=== PATIENT | male | born 1950 | race Caucasian/White ===

== ENCOUNTER 2018-02-12 12:14 | Inpatient (IN) | payer BC, MEDICARE ==
--- NOTE | 2018-02-12 12:28 | ED Physician Documentation ---
PD HPI LOWER EXT INJURY - Stated complaint Stated Complaint: GLF - Chief complaint Chief Complaint: Ext Problem - History obtained from History obtained from: Patient, Family - History of Present Illness PD HPI LOW EXT INJURY LOCATION: Right, Hip - Additional information Additional information: This is a 67-year-old gentleman who is visiting from [facility], he has a history of syncope due to anaphylaxis, but I guess during the workup he had a defibrillator placed which is now , and never shocked him and he does not know of any objective evidence of cardiac disease. This was back in 1997. He is a long-standing smoker and has always been thin without recent weight loss. He was at his granddaughter's confirmation, he stepped up to have a smoke and his hip gave out on him with moderate pain with motion, but little pain at rest. He fell down on his right side and also sustained a skin tear on the right elbow. He is unable to walk and bear weight due to hip pain. He declines pain medication on initial evaluation. Review of Systems Ten Systems: 10 systems reviewed and negative Constitutional: reports: Weight Loss (he is thin- but always has been so). denies: Fever, Chills, Fatigue Eyes: denies: Loss of vision, Decreased vision Nose: denies: Rhinorrhea / runny nose, Congestion Throat: denies: Sore throat Cardiac: denies: Chest pain / pressure, Palpitations Respiratory: denies: Dyspnea, Cough PD PAST MEDICAL HISTORY - Past Medical History Past Medical History: Yes Cardiovascular: Other (AICD in place- but .) - Past Surgical History Past Surgical History: No - Present Medications Home Medications: Ambulatory Orders Medication Instructions Recorded Confirmed No Known Home Medications [No 02/12/18 02/12/18 Known Home Medications] - Allergies Allergies/Adverse Reactions: Allergies Allergy/AdvReac Type Severity Reaction Status Date / Time No Known Drug Allergies Allergy Verified 02/12/18 12:24 - Living Situation Living Situation: reports: With spouse/s.o. - Social History Does the pt smoke?: Yes Does the pt drink ETOH?: No Does the pt have substance abuse?: No - Family History Family history: reports: Non contributory PD ED PE NORMAL - Vitals Vital signs reviewed: Yes - General General: Alert and oriented X 3, No acute distress, Other (he is very thin) - HEENT HEENT: PERRL, EOMI - Neck Neck: Supple, no meningeal sign, No bony TTP - Cardiac Cardiac: RRR, No murmur - Respiratory Respiratory: No respiratory distress, Clear bilaterally - Abdomen Abdomen: Normal bowel sounds, Soft, Non tender - Back Back: No CVA TTP, No spinal TTP - Derm Derm: Normal color, Warm and dry, Other (There is a skin tear to the lateral right elbow, NTTP) - Extremities Extremities: Other (Right leg is shortened and externally rotated, he points to the groin as the site of pain when I rotate him. He is in little pain at rest and he has good pedal pulses.) - Neuro Neuro: Alert and oriented X 3, Normal speech - Psych Psych: Normal mood, Normal affect Results - Vitals Vitals: Vital Signs - 24 hr 02/12/18 02/12/18 12:20 14:02 Temperature 36.8 C 36.3 C L Heart Rate 71 74 Respiratory 16 20 Rate Blood Pressure 135/66 H 111/60 O2 Saturation 97 98 Oxygen O2 Source Room air - EKG (time done) 1236 Rate: Rate (enter#) (70) Rhythm: NSR, LAE [place]: Normal Intervals: Normal MI QRS: Normal Ischemia: Normal ST segments Computer interpretation: Agree with computer - Labs Labs: Laboratory Tests 02/12/18 02/12/18 02/12/18 12:26 12:26 12:26 WBC 16.9 H RBC 4.66 L Hgb 12.6 L Hct 39.5 L MCV 84.9 MCH 27.1 MCHC 32.0 RDW 16.0 H Plt Count 257 MPV 9.5 Neut # 13.9 H Lymph # 1.6 Hayes # 1.0 Eos # 0.2 Baso # 0.1 Absolute Nucleated RBC 0.00 Nucleated RBC % 0.0 Manual Slide Review Indicated Platelet Morphology RARE GIANT PLATELETS PT 12.3 INR 1.1 Sodium 138 Potassium 3.6 Chloride 101 Carbon Dioxide 25 Anion Gap 12.0 BUN 14 Creatinine 0.6 Estimated GFR (MDRD) 134 Glucose 122 H Calcium 8.8 Total Bilirubin 0.7 AST 27 ALT 20 Alkaline Phosphatase 83 Troponin I Total Protein 7.2 Albumin 3.8 Globulin 3.4 Albumin/Globulin Ratio 1.1 Lipase 21 L Blood Type Antibody Screen 02/12/18 02/12/18 12:26 13:08 WBC RBC Hgb Hct MCV MCH MCHC RDW Plt Count MPV Neut # Lymph # Hayes # Eos # Baso # Absolute Nucleated RBC Nucleated RBC % Manual Slide Review Platelet Morphology PT INR Sodium Potassium Chloride Carbon Dioxide Anion Gap BUN Creatinine Estimated GFR (MDRD) Glucose Calcium Total Bilirubin AST ALT Alkaline Phosphatase Troponin I < 0.04 Total Protein Albumin Globulin Albumin/Globulin Ratio Lipase Blood Type O POSITIVE Antibody Screen NEGATIVE - Rads (name of study) 1v chest Radiology: EMP read contemporaneously (COPD with right suprahilar and upper lung opacities which are nonspecific.) 2v R hip Radiology: EMP read contemporaneously (There is an angulated intertrochanteric right proximal femur fracture with heterogenous sclerosis in the right proximal femur which may indicate an underlying lesion) PD MEDICAL DECISION MAKING - ED course ED course: 67-year-old gentleman presents with evidence of a right hip fracture after a fall. History is somewhat concerning actually potentially for pathologic fracture because he says his hip gave out on him and then he fell. X-rays were obtained and Dr. De La Garza the orthopedic [employer] consultant was called and came in and saw the patient and plans to take him to the OR today for definitive treatment. There is some concern still on x-ray for pathologic fracture and his chest x- ray was nonspecific but not really clear either, after discussion with the electric freight car operator who will be caring for him inpatient, Dr. Tomlinson we ordered a chest CT to further evaluate his abnormal chest x-ray. Departure - Departure Disposition: [facility] DC/Xfer Clinical Impression: Abnormal chest xray Fracture, intertrochanteric, right femur Qualifiers: Encounter type: initial encounter Fracture type: closed Fracture alignment: displaced Qualified Code(s): S72.141A - Displaced intertrochanteric fracture of right femur, initial encounter for closed fracture Condition: Stable
[2018-02-12 12:38] LABS: INR 1.1 (0.8-1.2); PT - PROTHROMBIN TIME 12.3 secs (9.9-12.6)
[2018-02-12 12:40] LABS: BASOPHILS # (AUTO) 0.1 10^3/uL (0.0-0.1); BASOPHILS % (AUTO) 0.5 %; EOSINOPHILS # (AUTO) 0.2 10^3/uL (0.0-0.7); EOSINOPHILS % (AUTO) 1.4 %; HGB - HEMOGLOBIN 12.6 g/dL (14.0-18.0); LYMPHOCYTES # (AUTO) 1.6 10^3/uL (1.5-3.5); LYMPHOCYTES % (AUTO) 9.8 %; MEAN CORPUSCULAR HEMOGLOBIN 27.1 pg (27.0-31.0); MEAN CORPUSCULAR VOLUME 84.9 fL (80.0-94.0); MEAN PLATELET VOLUME 9.5 fL (7.4-11.4); NEUTROPHILS # (AUTO) 13.9 10^3/uL (1.5-6.6); NEUTROPHILS % (AUTO) 82.3 %; PLT - PLATELET COUNT 257 10^3/uL (130-450); RED BLOOD COUNT 4.66 10^6/uL (4.70-6.10); WHITE BLOOD COUNT 16.9 x10^3/uL (4.8-10.8)
[2018-02-12 12:46] LABS: ALBUMIN 3.8 g/dL (3.2-5.5); ALBUMIN/GLOBULIN RATIO 1.1 (1.0-2.2); BILIRUBIN,TOTAL 0.7 mg/dL (0.2-1.0); CALCIUM 8.8 mg/dL (8.5-10.3); CREATININE 0.6 mg/dL (0.6-1.2); TOTAL PROTEIN 7.2 g/dL (6.7-8.2)
[2018-02-12 12:53] LABS: PLATELET MORPHOLOGY RARE GIANT PLATELETS (NORMAL)
[2018-02-12] MEDS ORDERED: MORPHINE 2 MG/ML SYRINGE IVP PRN (14:07)
[2018-02-12] MEDS ORDERED: oxyCODONE 5 MG TABLET PO PRN ×2 (14:07)
[2018-02-12] MEDS ORDERED: SODIUM CHLORIDE FLUSH 0.9% 10 ML SYRINGE IVP PRN (14:07)
[2018-02-12] MEDS ORDERED: ONDANSETRON 4 MG/2 ML VIAL IVP PRN (14:07)
[2018-02-12] MEDS ORDERED: PROCHLORPERAZINE 10 MG/2 ML VIAL IVP PRN (14:07)
--- NOTE | 2018-02-12 14:09 | XRAY Preliminary Report ---
Exam: XR HIP W/PELVIS 2-3V RT IMPRESSION: Angulated intertrochanteric right proximal femur fracture. Heterogeneous sclerosis in the right proximal femur may indicate underlying lesion. [facility] SITE ID: [id number]
--- NOTE | 2018-02-12 14:10 | XRAY Report ---
EXAM: RIGHT HIP AND PELVIS RADIOGRAPHY EXAM DATE: 02/12/2018 12:34 PM. HISTORY: Hip inj- poss path frx given hx. COMPARISONS: None. TECHNIQUE: 1 view of the pelvis and 1 view of the hip. FINDINGS: There is an intertrochanteric right proximal femur fracture with mild displacement and moderate varus angulation. Heterogeneous sclerosis within the right proximal femur just inferior to the fracture ma rgins. No dislocation. No additional fracture demonstrated. IMPRESSION: Angulated intertrochanteric right proximal femur fracture. Heterogeneous sclerosis in the right proximal femur may indicate underlying lesion. [facility] Referring Provider Line: [phone] SITE ID: [id number]
--- NOTE | 2018-02-12 14:12 | XRAY Report ---
EXAM: CHEST RADIOGRAPHY EXAM DATE: 02/12/2018 12:34 PM. CLINICAL HISTORY: Preop, also possible path fracture of hip. COMPARISON: None. TECHNIQUE: 1 view. FINDINGS: Lungs/Pleura: Patient is rotated. COPD with hyperinflation. Patchy right suprahilar and upper lobe op acities. Lungs otherwise clear. No visualized pleural effusion or pneumothorax. Mediastinum: Right hilar prominence. Normal heart size. AICD lead in place. Other: None. IMPRESSION: COPD. Right suprahilar and upper lung opacities are nonspecific, could represent pneumoni a, atelectasis/scarring, underlying neoplasm not excluded. [facility] Referring Provider Line: [phone] SITE ID: [id number]
--- NOTE | 2018-02-12 14:16 | PROVIDER PROGRESS NOTE ---
Subjective - Prog Note Date Prog Note Date: 02/12/18 Prog Note Time: 14:14 - Subjective Pt reports feeling: Worse (Patient had a fall (?loss of balance) this AM, landing onto right side and sustained a right IT hip fx. No LOC or other injury noted, but is unsure how or why he fell. Last ate last PM; only coffee with some sugar at about 0800. No distal weakness/numbness or N/V. No known hx for Ca.) Objective - Vital Signs/Intake & Output Vital Signs: Vital Signs x48h Temp Pulse Resp BP Pulse Ox 02/12/18 14:02 36.3 C L 74 20 111/60 98 02/12/18 12:20 36.8 C 71 16 135/66 H 97 - Lab Results Fish Bones: 02/12/18 12:26 02/12/18 12:26 Other Labs: Lab Results x24hrs 02/12/18 02/12/18 02/12/18 Range/Units 13:08 12:26 12:26 WBC (4.8-10.8) x10^3/uL RBC (4.70-6.10) 10^6/uL Hgb (14.0-18.0) g/dL Hct (42.0-52.0) % MCV (80.0-94.0) fL MCH (27.0-31.0) pg MCHC (32.0-36.0) g/dL RDW (12.0-15.0) % Plt Count (130-450) 10^3/uL MPV (7.4-11.4) fL Neut # (1.5-6.6) 10^3/uL Lymph # (1.5-3.5) 10^3/uL [place] # (0.0-1.0) 10^3/uL Eos # (0.0-0.7) 10^3/uL Baso # (0.0-0.1) 10^3/uL Absolute Nucleated RBC x10^3/uL Nucleated RBC % /100WBC Manual Slide Review Platelet Morphology (NORMAL) PT 12.3 (9.9-12.6) secs INR 1.1 (0.8-1.2) Sodium 138 (135-145) mmol/L Potassium 3.6 (3.5-5.0) mmol/L Chloride 101 (101-111) mmol/L Carbon Dioxide 25 (21-32) mmol/L Anion Gap 12.0 (6-13) BUN 14 (6-20) mg/dL Creatinine 0.6 (0.6-1.2) mg/dL Estimated GFR (MDRD) 134 (>89) Glucose 122 H (70-100) mg/dL Calcium 8.8 (8.5-10.3) mg/dL Total Bilirubin 0.7 (0.2-1.0) mg/dL AST 27 (10-42) IU/L ALT 20 (10-60) IU/L Alkaline Phosphatase 83 (42-121) IU/L Total Protein 7.2 (6.7-8.2) g/dL Albumin 3.8 (3.2-5.5) g/dL Globulin 3.4 (2.1-4.2) g/dL Albumin/Globulin Ratio 1.1 (1.0-2.2) Lipase 21 L (22-51) U/L Blood Type O POSITIVE Antibody Screen NEGATIVE 02/12/18 Range/Units 12:26 WBC 16.9 H (4.8-10.8) x10^3/uL RBC 4.66 L (4.70-6.10) 10^6/uL Hgb 12.6 L (14.0-18.0) g/dL Hct 39.5 L (42.0-52.0) % MCV 84.9 (80.0-94.0) fL MCH 27.1 (27.0-31.0) pg MCHC 32.0 (32.0-36.0) g/dL RDW 16.0 H (12.0-15.0) % Plt Count 257 (130-450) 10^3/uL MPV 9.5 (7.4-11.4) fL Neut # 13.9 H (1.5-6.6) 10^3/uL Lymph # 1.6 (1.5-3.5) 10^3/uL [place] # 1.0 (0.0-1.0) 10^3/uL Eos # 0.2 (0.0-0.7) 10^3/uL Baso # 0.1 (0.0-0.1) 10^3/uL Absolute Nucleated RBC 0.00 x10^3/uL Nucleated RBC % 0.0 /100WBC Manual Slide Review Indicated Platelet Morphology RARE GIANT PLATELETS (NORMAL) PT (9.9-12.6) secs INR (0.8-1.2) Sodium (135-145) mmol/L Potassium (3.5-5.0) mmol/L Chloride (101-111) mmol/L Carbon Dioxide (21-32) mmol/L Anion Gap (6-13) BUN (6-20) mg/dL Creatinine (0.6-1.2) mg/dL Estimated GFR (MDRD) (>89) Glucose (70-100) mg/dL Calcium (8.5-10.3) mg/dL Total Bilirubin (0.2-1.0) mg/dL AST (10-42) IU/L ALT (10-60) IU/L Alkaline Phosphatase (42-121) IU/L Total Protein (6.7-8.2) g/dL Albumin (3.2-5.5) g/dL Globulin (2.1-4.2) g/dL Albumin/Globulin Ratio (1.0-2.2) Lipase (22-51) U/L Blood Type Antibody Screen - Diagnostic Imaging Diagnostic Imaging Comments: XR show a right IT hip fracture. ?bone quality with sclerotic pattern present, per radiologist's read - Other Results/Comments Other Results/Comments: EXAM: Right leg shortened and ext rotated. Painful hip motion. Lateral hip tenderness. Moves toes well. Sensation intact. Good cap filling Assessment/Plan - Problem List (1) Fracture, intertrochanteric, right femur Impression: Closed fracture. ?etiology. Hx suggests possible pathologic fx PLAN: Medical evaluation prior to surgical fixation of fracture. Will plan a short interTan nailing of fracture and will send some bone reaming to pathology for assessment. Risks and benefit of surgery explained, including anesthesia risk, malunion, nonunion, infection, blood loss, blood clots, etc. Questions answered. Leg marked Qualifiers: Encounter type: initial encounter Fracture type: closed Fracture alignment: displaced Qualified Code(s): S72.141A - Displaced intertrochanteric fracture of right femur, initial encounter for closed fracture
[2018-02-12] MEDS ORDERED: IPRATROPIUM/ALBUTEROL 3 ML NEB INH PRN (14:21)
[2018-02-12] MEDS ORDERED: IOPAMIDOL-300 100 ML VIAL IVP ONE (14:48)
[2018-02-12] MEDS ORDERED: IOPAMIDOL-300 100 ML VIAL ONE (14:51)
[2018-02-12] MEDS: ACETAMINOPHEN 325 MG TABLET PO PRN (15:26)
--- NOTE | 2018-02-12 16:03 | CONSULTATION NOTE ---
DATE OF SERVICE: 02/12/2018 Physician: Prasanth De La Garza MD ORTHOPEDIC CONSULT NOTE REFERRING PHYSICIAN: Dayne Burch MD, of the emergency room department. CHIEF COMPLAINT: "My right hip hurts." HISTORY OF PRESENT ILLNESS: Patient is a 67-year-old male visitor from [place], [place], who apparently had a fall on the morning of his admission. Patient denies tripping, stumbling, and is unsure why he had his fall. Denies any actual loss of consciousness, however. No other associated injury. No distal weakness or numbness. No nausea or vomiting noted. After his fall, he noted immediate pain and deformity in the right hip region. He was unable to move or able to stand and weightbear on the right lower extremity. He was taken by ambulance to the emergency room here at [facility], where x-rays show an intertrochanteric right hip fracture. Radiology report of the x-ray finding suggests there may be some sclerotic pattern noted in the area of this fracture as well. Patient has no known history of cancer. PHYSICAL EXAMINATION: Patient's right leg was examined. His right leg is shortened and externally rotated. He had lateral hip tenderness on palpation. Had painful hip range of motion noted. He moves his toes well without any problems. Sensation appeared to be intact distally. Good capillary filling noted. DIAGNOSTIC STUDIES: X-rays that were taken show an intertrochanteric right hip fracture present. ASSESSMENT 1. Closed right intertrochanteric hip fracture. 2. Etiology of the fracture is unclear, since patient denies a loss of consciousness; has had a history of balance issues. PLAN: We will have the medical service evaluate the patient to see if he is stable enough to proceed with surgical fixation of the fracture. Because of the radiologist's interpretation of his x-rays, and the suspicious history for the patient's fracture, we will send some of the intramedullary reaming that will be produced from the stabilization of this hip fracture to Pathology for pathologic inspection. Once he has been medically cleared, however, we will proceed for surgical fixation fracture, which would be a short Intertan nailing for this fracture. Risks and benefits of surgery were explained to the patient and his family including, but not limited to anesthesia risks, malunion, nonunion, infection, blood loss, blood clots, hardware failure, etc. Questions were answered. Family wishes to proceed with surgery as planned once he has been medically cleared. Consent has been signed. The leg was marked. TD: 02/12/2018 15:11
--- NOTE | 2018-02-12 16:10 | CT Report ---
EXAM: CT CHEST EXAM DATE: 02/12/2018 03:39 PM. CLINICAL HISTORY: IV only, abn cxr, tobacco. Trauma, fall, hip fracture. COMPARISONS: No CT comparison. Single view chest radiograph 02/12/2018. TECHNIQUE: Routine helical CT imaging was performed through the chest. IV contrast: 80 cc Isovue-300. Reconstructions: Coronal and sagittal. In accordance with CT protocol optimization, one or more of the following dose reduction techniques w ere utilized for this exam: automated exposure control, adjustment of mA and/or KV based on patient s ize, or use of iterative reconstructive technique. FINDINGS: Lungs/Pleura: Broad area of consolidation within the posterior right upper lobe with a dominant porti on having approximate maximum dimensions of 4.2 x 8.3 x 3.6 cm. There are multiple internal air bronc hograms. This also a dominant cystic/cavitary internal component measuring 1.8 x 4.3 x 2.1 cm. There is calcification, versus surgical material, along the posterior margin of the cavity. Extending broad ly inferiorly from there is pleural-based irregular pulmonary consolidation and also irregular massli ke densities with a dominant component demonstrating maximum axial dimension of approximately 4.3 cm and craniocaudal dimension. Approximately 4.1 cm (4/34 and coronal image 41). It also demonstrates so me small areas of air bronchograms and focal cavitation. These are suspicious for malignancy. There i s a mostly separate lobulated, masslike area within the central superior apex measuring 1.3 x 3.7 cm (4/12). Nodular and bandlike densities extending along the posterior right lower lobe pleura and ther e are numerous discrete separate soft tissue pulmonary nodules within the right lung, greatest in the posterior right lower lobe. There is a trace right pleural effusion. There is pulmonary emphysematou s disease. No pneumothorax. Numerous left pulmonary nodules. The largest is lobulated and mildly irregular within the lateral lef t upper lobe measuring 1.0 x 1.3 cm densities 4/27). Irregular nodular density within the lingular se gment measures 0.7 x 1.8 cm (4/48). There are numerous relatively clustered nodules within the anteri or left lower lobe measuring 0.9 cm and less. Numerous additional smaller pulmonary nodules. Mediastinum: Possible mildly prominent medial left AP window lymph node. Some mild right hilar densit y could represent mild adenopathy. No other guerline adenopathy. Relatively small heart size. No pericar dial effusion. Moderate to severe coronary artery calcifications. Transvenous directly extends to the ventricular apex. Bones: Evidence of osteopenia. 50-60% compression fracture of the T9 vertebral body with [id number] rate inferior T7 and superior T11 vertebral body height loss. These are of undocumented chronicity. D iscrete 1.0 cm lucency within the superior T12 vertebral body extensive endplate likely represents a Schmorl's node. No other definite acute osseous abnormality. Visualized Abdomen: No definite acute abnormality. Other: None. IMPRESSION: 1. Extensive confluent, soft tissue, masslike and multifocal densities within the posterior right upp er lung and also within the right lower lobe with areas of central cavitation. There are also numerou s bilateral pulmonary nodules. These findings are highly suspicious for malignancy and metastatic dis ease. A chronic, atypical infectious etiology is not excluded. Correlation with clinical history and any prior exams is recommended. 2. Possible borderline enlarged mediastinal lymph noted with possible mild right hilar lymphadenopath y. 3. Multiple thoracic vertebral body compression deformities, of indeterminate chronicity. [facility] Referring Provider Line: [phone] SITE ID: [id number]
[2018-02-12] MEDS: SODIUM CHLORIDE 0.9% 1,000 ML IV SCH (16:24)
--- NOTE | 2018-02-12 17:22 | HISTORY & PHYSICAL EXAMINATION ---
Chief Complaint - Chief Complaint Chief Complaint: Right hip pain History of Present Illness - Admitted From Admitted From:: Emergency department - History Obtained From Records Reviewed: Yes History obtained from: Patient Exam Limitations: Patient unable to move his right leg secondary to hip fracture - History of Present Illness HPI Comment/Other: Patient is a 67-year-old gentleman with a past medical history significant for 3 episodes of respiratory failure which were attributed to anaphylactic shock from fire ant bites for which patient did have an AICD placed but this is never fired and he has never replaced the battery therefore it is nonfunctioning otherwise the patient has been relatively healthy all his life although he does not regularly follow up with the doctor. The patient presented to the emergency department today after he fell to the floor after his granddaughters communion ceremony at the [employer]. He states that he cannot remember exactly what happened but states that he remembers stumbling forward and then falling on his right side. He states that he did not lose consciousness nor did he hit his head. He states when he landed on the floor he was in excruciating pain in his right hip. He states that he tried to stand up and move his right leg but he was unable to due to the severity of the pain. The patient does not remember tripping over anything and only remembers falling to the floor. No one around the patient saw him fall. But people were at his side within seconds and the patient never had any loss of consciousness. Prior to the episode the patient states he was in his normal state of health and was not experiencing any dizziness, palpitations, chest pain, shortness of air, fevers, chills, or any other symptoms. On further questioning the patient states that he has noticed that he has had increasing shortness of breath over the last 6 months. He states that he is noticed that he has been having episodes of wheezing. He also states that he has been having a cough for the last several years that has become worse over the last 6 months to 1 year. He states the cough is particularly bad in the morning and seems to get better throughout the day. He also reports that he has lost about 25 pounds over the last 1-2 years. He states that he no longer has an appetite. He states that he is always been thin but usually he weighs around 150-160 pounds and is now down to 125 pounds. The patient also states that he has noticed that recently he has had difficulty with his balance but denies having had any other falls. At this time the patient is in severe pain anytime he moves his leg but he states that as long as he stays still the pain is minimal. The patient denies any headaches, blurred vision, runny nose, sore throat, nasal congestion, difficulty swallowing, chest pain, orthopnea, PND, increased lower extremity swelling, abdominal pain, nausea, vomiting, diarrhea, constipation, urinary urgency, urinary frequency, dysuria, back pain, neck stiffness, skin rash, hair loss or any focal neurologic deficits. On presentation to the emergency department the patient was afebrile and vital signs were within normal limits. The emergency room physician noted that the patient had an externally rotated and shortened right leg. The patient was also in a significant amount of pain. The patient underwent routine lab work initially which did reveal a leukocytosis of 16.9 and a anemia with hemoglobin of 12.6. The remainder of the patient's lab work was within normal limits. Patient had a negative troponin and EKG showed no ischemic changes. Given the uncertainty of whether patient had a syncopal episode the patient also underwent an echocardiogram in the emergency department which showed a normal ejection fraction with no regional wall motion abnormalities and no evidence of any valvular abnormalities. The patient also underwent a x-ray of his right hip which revealed a angulated intertrochanteric right proximal femur fracture. With heterogeneous sclerosis in the right proximal femur concerning for underlying lesion. The patient also underwent a chest x-ray in the emergency department which revealed COPD. Right suprahilar and upper lung opacities which were nonspecific and could represent underlying neoplasm. Given the concern with the patient having had recent weight loss, cough increasing shortness of breath, concerning lesion on the hip x-ray and this x-ray finding the patient also underwent a CT of his chest which revealed extensive confluent soft tissue masslike and multifocal densities within posterior right upper lung and also within the right lower lobe with areas of central cavitation. Also with numerous bilateral pulmonary nodules. Very suspicious for malignancy and metastatic disease. The patient was admitted to the medical carias for repair of his right hip fracture and will need counseling at further outpatient workup for possible cancer. History - Past Medical History Cardiovascular: reports: Other Respiratory: reports: COPD, Emphysema Neuro: reports: None Endocrine/Autoimmune: reports: None GI: reports: None : reports: None HEENT: reports: Macular degeneration Psych: reports: None Musculoskeletal: reports: None Derm: reports: None MRSA Hx?: No Other Past Medical History: 3 episodes of respiratory failure which were attributed to anaphylactic shock from fire ant bites for which patient did have an AICD placed but this is never fired and he has never replaced the battery therefore it is nonfunctioning - Past Surgical History General: reports: Appendectomy HEENT: reports: Tonsil/Adenoidectomy - Family & Social History Family History: Mother: Alzheimer's Disease, CAD, Father: CAD, Cancer (Colon Ca , Sister had bone cancer at 17 years old and ), COPD/Emphysema, Sister: CAD , Cancer Family History Comment/Other: Sister and mom both had atrial fibrillation Living arrangement: At home Living Situation: With spouse/s.o. Social History Notes: The patient is born and raised in [place], [place]. He moved to [place] in 1978 and he and his have lived there since. The patient was in the [employer] industry until he retired. He has 3 daughters 1 of whom lives on [facility]. He is currently visiting his daughter as it is his granddaughter's first communion. He is and his is retiring in April. The patient is a smoker and in the past smoked up to 1 pack per day but recently has cut down to 4-6 cigarettes a day. He states he has been smoking since his teen years. He also drinks 3 beers a day. He denies any illicit drug use. - POLST Patient has POLST: No POLST Status: Full Code Meds/Allgy - Home Medications Home Medications: Ambulatory Orders Medication Instructions Recorded Confirmed No Known Home Medications [No 02/12/18 02/12/18 Known Home Medications] - Allergies Allergies/Adverse Reactions: Allergies Allergy/AdvReac Type Severity Reaction Status Date / Time No Known Drug Allergies Allergy Verified 02/12/18 12:24 Review of Systems - Other Findings Other Findings: A comprehensive review of systems was performed the pertinent positives and negatives are stated above in the HPI and the remainder of the review of systems is negative. Exam - Vital Signs Reviewed Vital Signs: Yes Vital Signs: Vital Signs x48h Temp Pulse Resp BP Pulse Ox 02/12/18 15:24 36.4 C L 78 22 107/73 100 - Physical Exam General Appearance: positive: Alert, Moderate distress (pain in right hip), Other (cachectic) Eyes Bilateral: positive: Normal inspection, PERRL, EOMI, No lid inflammation, Conjunctivae nml, No scleral icterus ENT: positive: ENT inspection nml, Pharynx nml, Dry mucous membranes. negative : Purulent nasal drainage, Pharyngeal erythema, Oral lesions Neck: positive: Nml inspection, Thyroid nml, No JVD, Trachea midline. negative : Lymphadenopathy (R), Lymphadenopathy (L), Stiff neck Respiratory: positive: Chest non-tender, Wheezes (bilateral in lower lobes worse on the right), Rhonchi (right lung) Cardiovascular: positive: Regular rate & rhythm, No murmur, No gallop Peripheral Pulses: positive: 2+ Abdomen: positive: Non-tender, No organomegaly, Nml bowel sounds, No distention. negative: Guarding, Rebound, Hepatomegaly, Splenomegaly Back: positive: Nml inspection. negative: CVA tenderness (R), CVA tenderness (L ) Skin: positive: No rash, Warm. negative: Diaphoresis, Pallor, Skin rash Extremities: positive: Other (Right leg is externally rotated and shortened. There is swelling around the right hip. Patient has very limited range of motion secondary to pain around the right leg) Neurologic/Psychiatric: positive: Oriented x3, CN's nml (2-12), Motor nml, Sensation nml, Mood/affect nml Conclusion/Plan - Problem List (1) Fracture, intertrochanteric, right femur Conclusion/Plan: Patient presented with a fall and right intertrochanteric femur fracture. There was concern on the x-ray for heterogeneous sclerosis in the right proximal femur likely indicating an underlying lesion. The presentation was concerning for possible pathological fracture. Findings of chest x-ray and chest CT are suggestive of metastatic lung cancer which could explain the possible pathological fracture. Patient will need surgical intervention to repair the fracture. According to the revised cardiac risk index which does not take into account malignancy the patient's risk of major cardiac event during the surgery is 0.4%. Plan: N.p.o. after midnight Orthopedic consult for surgical repair of the right hip fracture in the morning Pain control with IV morphine, Tylenol and oxycodone Physical therapy post surgery Start anticoagulation post surgery Patient will likely need rehab placement. Qualifiers: Encounter type: initial encounter Fracture type: closed Fracture alignment: displaced Qualified Code(s): S72.141A - Displaced intertrochanteric fracture of right femur, initial encounter for closed fracture (2) Lesion of right lung Conclusion/Plan: Patient was found to have a right lung lesion on chest x-ray and CT chest was performed given his risk factors of long-term smoking, weight loss, increasing shortness of breath and possible pathological fracture. The CT showed extensive confluent, soft tissue, masslike and multifocal densities within the posterior right upper lung and also within the right lower lobe with areas of central cavitation. There was also numerous bilateral pulmonary nodules. This was all highly suspicious for malignancy and metastatic disease. Patient and his were told of these findings and counseled. The patient understands that diagnosis needs to be confirmed with a biopsy but at this point it looks very much like he has metastatic cancer. Patient will need further outpatient workup and will need to be referred to oncology. Patient will need to decide whether he wants [place] do [place] at his home. (3) COPD (chronic obstructive pulmonary disease) Conclusion/Plan: Patient appears to have emphysema with COPD from long-term tobacco use. The patient had no previous diagnosis of COPD. Patient does not appear to be in a COPD exacerbation although he does have some diffuse wheezing. Patient will be placed on duo nebs as needed while he is hospitalized. Qualifiers: COPD type: emphysema (4) Tobacco abuse Conclusion/Plan: Patient has history of tobacco abuse up to 1 pack a day for greater than 50 years. The patient was counseled on need to quit smoking. Patient will be offered a nicotine patch if he needs it - Lab Results Lab results reviewed: Yes Fish Bones: 02/12/18 12:26 02/12/18 12:26 Other Lab Results: Laboratory Results WBC 16.9 x10^3/uL (4.8-10.8) H 02/12/18 12:26 RBC 4.66 10^6/uL (4.70-6.10) L 02/12/18 12:26 Hgb 12.6 g/dL (14.0-18.0) L 02/12/18 12:26 Hct 39.5 % (42.0-52.0) L 02/12/18 12:26 MCV 84.9 fL (80.0-94.0) 02/12/18 12:26 MCH 27.1 pg (27.0-31.0) 02/12/18 12:26 MCHC 32.0 g/dL (32.0-36.0) 02/12/18 12:26 RDW 16.0 % (12.0-15.0) H 02/12/18 12:26 Plt Count 257 10^3/uL (130-450) 02/12/18 12:26 MPV 9.5 fL (7.4-11.4) 02/12/18 12:26 Neut # 13.9 10^3/uL (1.5-6.6) H 02/12/18 12:26 Lymph # 1.6 10^3/uL (1.5-3.5) 02/12/18 12:26 [place] # 1.0 10^3/uL (0.0-1.0) 02/12/18 12:26 Eos # 0.2 10^3/uL (0.0-0.7) 02/12/18 12:26 Baso # 0.1 10^3/uL (0.0-0.1) 02/12/18 12:26 Absolute Nucleated RBC 0.00 x10^3/uL 02/12/18 12:26 Nucleated RBC % 0.0 /100WBC 02/12/18 12:26 Manual Slide Review Indicated 02/12/18 12:26 Platelet Morphology RARE GIANT PLATELETS (NORMAL) 02/12/18 12:26 PT 12.3 secs (9.9-12.6) 02/12/18 12:26 INR 1.1 (0.8-1.2) 02/12/18 12:26 Sodium 138 mmol/L (135-145) 02/12/18 12:26 Potassium 3.6 mmol/L (3.5-5.0) 02/12/18 12:26 Chloride 101 mmol/L (101-111) 02/12/18 12:26 Carbon Dioxide 25 mmol/L (21-32) 02/12/18 12:26 Anion Gap 12.0 (6-13) 02/12/18 12:26 BUN 14 mg/dL (6-20) 02/12/18 12:26 Creatinine 0.6 mg/dL (0.6-1.2) 02/12/18 12:26 Estimated GFR (MDRD) 134 (>89) 02/12/18 12:26 Glucose 122 mg/dL (70-100) H 02/12/18 12:26 Calcium 8.8 mg/dL (8.5-10.3) 02/12/18 12:26 Total Bilirubin 0.7 mg/dL (0.2-1.0) 02/12/18 12:26 AST 27 IU/L (10-42) 02/12/18 12:26 ALT 20 IU/L (10-60) 02/12/18 12:26 Alkaline Phosphatase 83 IU/L (42-121) 02/12/18 12:26 Troponin I < 0.04 ng/mL (<0.49) 02/12/18 12:26 Total Protein 7.2 g/dL (6.7-8.2) 02/12/18 12:26 Albumin 3.8 g/dL (3.2-5.5) 02/12/18 12:26 Globulin 3.4 g/dL (2.1-4.2) 02/12/18 12:26 Albumin/Globulin Ratio 1.1 (1.0-2.2) 02/12/18 12:26 Lipase 21 U/L (22-51) L 02/12/18 12:26 Blood Type O POSITIVE 02/12/18 13:08 Antibody Screen NEGATIVE 02/12/18 13:08 - Diagnostic Imaging Results Diagnostic Imaging Results: positive: Final report reviewed Diagnostic Imaging Results Comments: EXAM: [id number] XR/RHIP2V ([id number]) EXAM: RIGHT HIP AND PELVIS RADIOGRAPHY EXAM DATE: 02/12/2018 12:34 PM. HISTORY: Hip inj- poss path frx given hx. COMPARISONS: None. TECHNIQUE: 1 view of the pelvis and 1 view of the hip. FINDINGS: There is an intertrochanteric right proximal femur fracture with mild displacement and moderate varus angulation. Heterogeneous sclerosis within the right proximal femur just inferior to the fracture margins. No dislocation. No additional fracture demonstrated. IMPRESSION: Angulated intertrochanteric right proximal femur fracture. Heterogeneous sclerosis in the right proximal femur may indicate underlying lesion. EXAM: [id number] XR/[id number] ([id number]) EXAM: CHEST RADIOGRAPHY EXAM DATE: 02/12/2018 12:34 PM. CLINICAL HISTORY: Preop, also possible path fracture of hip. COMPARISON: None. TECHNIQUE: 1 view. FINDINGS: Lungs/Pleura: Patient is rotated. COPD with hyperinflation. Patchy right suprahilar and upper lobe opacities. Lungs otherwise clear. No visualized pleural effusion or pneumothorax. Mediastinum: Right hilar prominence. Normal heart size. AICD lead in place. Other: None. IMPRESSION: COPD. Right suprahilar and upper lung opacities are nonspecific, could represent pneumonia, atelectasis/scarring, underlying neoplasm not excluded. EXAM: [id number] CT/CHTW ([id number]) EXAM: CT CHEST EXAM DATE: 02/12/2018 03:39 PM. CLINICAL HISTORY: IV only, abn cxr, tobacco. Trauma, fall, hip fracture. COMPARISONS: No CT comparison. Single view chest radiograph 02/12/2018. TECHNIQUE: Routine helical CT imaging was performed through the chest. IV contrast: 80 cc Isovue- 300. Reconstructions: Coronal and sagittal. In accordance with CT protocol optimization, one or more of the following dose reduction techniques were utilized for this exam: automated exposure control, adjustment of mA and/or KV based on patient size, or use of iterative reconstructive technique. FINDINGS: Lungs/Pleura: Broad area of consolidation within the posterior right upper lobe with a dominant portion having approximate maximum dimensions of 4.2 x 8.3 x 3.6 cm. There are multiple internal air bronchograms. This also a dominant cystic/cavitary internal component measuring 1.8 x 4.3 x 2.1 cm. There is calcification, versus surgical material, along the posterior margin of the cavity. Extending broadly inferiorly from there is pleural-based irregular pulmonary consolidation and also irregular masslike densities with a dominant component demonstrating maximum axial dimension of approximately 4.3 cm and craniocaudal dimension. Approximately 4.1 cm (/34 and coronal image 41). It also demonstrates some small areas of air bronchograms and focal cavitation. These are suspicious for malignancy. There is a mostly separate lobulated, masslike area within the central superior apex measuring 1.3 x 3.7 cm (4/12). Nodular and bandlike densities extending along the posterior right lower lobe pleura and there are numerous discrete separate soft tissue pulmonary nodules within the right lung, greatest in the posterior right lower lobe. There is a trace right pleural effusion. There is pulmonary emphysematous disease. No pneumothorax. Numerous left pulmonary nodules. The largest is lobulated and mildly irregular within the lateral left upper lobe measuring 1.0 x 1.3 cm densities 4/27). Irregular nodular density within the lingular segment measures 0.7 x 1.8 cm (4/48). There are numerous relatively clustered nodules within the anterior left lower lobe measuring 0.9 cm and less. Numerous additional smaller pulmonary nodules. Mediastinum: Possible mildly prominent medial left AP window lymph node. Some mild right hilar density could represent mild adenopathy. No other guerline adenopathy. Relatively small heart size. No pericardial effusion. Moderate to severe coronary artery calcifications. Transvenous directly extends to the ventricular apex. Bones: Evidence of osteopenia. 50-60% compression fracture of the T9 vertebral body with mild-to- moderate inferior T7 and superior T11 vertebral body height loss. These are of undocumented chronicity. Discrete 1.0 cm lucency within the superior T12 vertebral body extensive endplate likely represents a Schmorl's node. No other definite acute osseous abnormality. Visualized Abdomen: No definite acute abnormality. Other: None. IMPRESSION: 1. Extensive confluent, soft tissue, masslike and multifocal densities within the posterior right upper lung and also within the right lower lobe with areas of central cavitation. There are also numerous bilateral pulmonary nodules. These findings are highly suspicious for malignancy and metastatic disease. A chronic, atypical infectious etiology is not excluded. Correlation with clinical history and any prior exams is recommended. 2. Possible borderline enlarged mediastinal lymph noted with possible mild right hilar lymphadenopathy. 3. Multiple thoracic vertebral body compression deformities, of indeterminate chronicity - EKG Results EKG Interpreted Independently: Yes EKG Findings: Normal sinus rhythm with no ST changes Core Measures - Anticipated LOS I expect patient to be DC'd or transferred within 96 hours.: Yes - DVT/VTE - Prophylaxis VTE/DVT Device ordered at admit?: Yes
[2018-02-12] MEDS: SODIUM CHLORIDE FLUSH 0.9% 10 ML SYRINGE IVP SCH ×2 (19:48→23:38)
[2018-02-13] MEDS ORDERED: ACETAMINOPHEN 1,000 MG/100 ML 100 ML IV PRN ×2 (01:06→09:40)
[2018-02-13] MEDS: SODIUM CHLORIDE 0.9% 1,000 ML IV SCH ×3 (01:28→21:22)
[2018-02-13 05:53] LABS: BASOPHILS # (AUTO) 0.1 10^3/uL (0.0-0.1); BASOPHILS % (AUTO) 0.7 %; EOSINOPHILS # (AUTO) 0.1 10^3/uL (0.0-0.7); EOSINOPHILS % (AUTO) 1.6 %; HGB - HEMOGLOBIN 10.2 g/dL (14.0-18.0); LYMPHOCYTES # (AUTO) 0.7 10^3/uL (1.5-3.5); LYMPHOCYTES % (AUTO) 8.3 %; MEAN CORPUSCULAR HEMOGLOBIN 26.7 pg (27.0-31.0); MEAN CORPUSCULAR VOLUME 83.5 fL (80.0-94.0); MONOCYTES # (AUTO) 0.8 10^3/uL (0.0-1.0); MONOCYTES % (AUTO) 9.3 %; NEUTROPHILS # (AUTO) 7.2 10^3/uL (1.5-6.6); NEUTROPHILS % (AUTO) 80.1 %; PLT - PLATELET COUNT 183 10^3/uL (130-450); RED BLOOD COUNT 3.81 10^6/uL (4.70-6.10); RED CELL DISTRIBUTION WIDTH 15.4 % (12.0-15.0)
[2018-02-13 06:02] LABS: BILIRUBIN,TOTAL 0.8 mg/dL (0.2-1.0); CALCIUM 8.3 mg/dL (8.5-10.3); CREATININE 0.5 mg/dL (0.6-1.2); MAGNESIUM 1.9 mg/dL (1.7-2.8); PHOSPHORUS 3.1 mg/dL (2.5-4.6); TOTAL PROTEIN 5.9 g/dL (6.7-8.2)
[2018-02-13 06:10] LABS: PT - PROTHROMBIN TIME 11.8 secs (9.9-12.6)
[2018-02-13] MEDS ORDERED: ceFAZolin 2 GM/50 ML 2 GM/50 ML BAG IV SCH (08:00)
[2018-02-13] MEDS ORDERED: BUPIVACAINE 0.25%-EPI 1:200000 PF 30 ML VIAL SUBQ ONE (09:25)
[2018-02-13] MEDS ORDERED: LACTATED RINGERS 1,000 ML IV ONE ×2 (09:27→09:54)
[2018-02-13] MEDS ORDERED: BUPIVACAINE 0.25%-EPI 1:200000 PF 30 ML VIAL ONE (09:28)
[2018-02-13] MEDS ORDERED: KETAMINE 500 MG/10 ML VIAL IVP ONE (09:30)
[2018-02-13] MEDS ORDERED: PROPOFOL 200 MG/20 ML VIAL IVP ONE (09:30)
[2018-02-13] MEDS ORDERED: ACETAMINOPHEN 325 MG TABLET PO PRN (09:40)
[2018-02-13] MEDS ORDERED: PROCHLORPERAZINE 10 MG/2 ML VIAL IVP PRN (09:40)
[2018-02-13] MEDS ORDERED: SENNA 8.6 MG TABLET PO PRN (09:40)
[2018-02-13] MEDS ORDERED: DOCUSATE SODIUM 100 MG CAPSULE PO PRN (09:40)
[2018-02-13] MEDS ORDERED: ONDANSETRON 4 MG/2 ML VIAL IVP PRN (09:40)
[2018-02-13] MEDS ORDERED: SODIUM CHLORIDE FLUSH 0.9% 10 ML SYRINGE IVP PRN (09:40)
--- NOTE | 2018-02-13 09:40 | OPERATIVE REPORT ---
Operative Report - General Admit Date: 02/12/18 Procedure Date: 02/13/18 Planned Procedure: Short interTan nailing of right hip fracture Pre-Op Diagnosis: Closed right IT hip fracture - possibly pathologic fracture Procedure Performed: Closed reduction and short interTan nailing of right IT hip fracture; Bone reaming biopsy Post Op Diagnosis: Same - Procedure Note Primary Surgeon: Priya De La Garza Secondary Surgeon: None Anesthesia Provider: Bernadette Shannon CRNA Anesthesia Technique: Spinal Pathology: Bone reaming sent to pathology IV Fluids (mL): 800 Estimated Blood Loss (mL): 100 Complications: None
[2018-02-13] MEDS ORDERED: SODIUM CHLORIDE 0.9% 1,000 ML IV SCH (10:00)
[2018-02-13] MEDS ORDERED: HYDROmorphone 0.5 MG/0.5 ML SYRINGE ONE (10:14)
[2018-02-13] MEDS: FAMOTIDINE 20 MG TABLET PO SCH (10:15)
[2018-02-13] MEDS: POLYETHYLENE GLYCOL 3350 17 GM PACKET PO SCH (10:15)
[2018-02-13] MEDS: SODIUM CHLORIDE FLUSH 0.9% 10 ML SYRINGE IVP SCH ×2 (10:16→17:06)
--- NOTE | 2018-02-13 10:23 | XRAY Report ---
EXAM: FLUOROSCOPIC GUIDANCE EXAM DATE: 02/13/2018 09:34 AM. CLINICAL HISTORY: Right hip fracture. Reduction and fixation. COMPARISON: None. IMPRESSION: Fluoroscopic guidance provided for right hip reduction and fixation. Total fluoroscopy ti me: 18 seconds. Number of images: 0. THAIS Referring Provider Line: [phone] SITE ID: [id number]
--- NOTE | 2018-02-13 12:04 | OPERATIVE REPORT ---
DATE OF SERVICE: 02/13/2018 Physician: Prasanth De La Garza MD PREOPERATIVE DIAGNOSIS: Closed right intertrochanteric hip fracture - ? possible pathologic fracture. POSTOPERATIVE DIAGNOSIS: Closed right intertrochanteric hip fracture - ? possible pathologic fracture. PROCEDURE PERFORMED: Closed reduction and short InterTan nailing of right hip fracture; bone reaming biopsy. SURGEON: Prasanth De La Garza MD ANESTHESIA: Spinal. DESCRIPTION OF PROCEDURE: The patient was taken to the operating room on the morning of the 02/13/2018, where he was placed under a spinal anesthetic without any complications. He was then positioned supine and transferred to the fracture table. His left unfractured extremity was then flexed and abducted at the hip and held with a well leg nugyen. The right lower extremity was then placed into axial traction with the leg internally rotated about 20 degrees. Fluoroscopic views in AP and lateral projection showed good reduction of our fracture once the leg was under traction. Also, we could visualize the hip joint and the fracture well in both AP and lateral projections with the C-arm fluoroscopy machine. We then prepped and draped the lateral aspect of the hip and proximal thigh in the usual fashion for our procedure. Making a small oblique skin incision just proximal to the tip of the greater trochanter, we dissected down to the tip of the greater trochanter. This is where we placed the threaded tip of our 3.2 mm guidewire. With power, we advanced this pin through the greater trochanter, down to the left lesser trochanter level. Fluoroscopic views in AP and lateral projection showed good placement of our pin in both AP and lateral projections. Satisfied with this, we then proceeded to ream the proximal femur with the 16 mm channel reamer advancing over our inserted guide pin. This was advanced to the level of the lesser trochanter. We then removed the channel reamer and our guide pin. This was followed by the selected short InterTan nail: 10 mm x 18 cm x 125 degree angle short nail. This was inserted after we placed the nail in the insertion guide. We advanced this nail until the proximal end of our nail was in line with the femoral neck access. Placing the oval drill sleeve into the distal end of our insertion guide, we made a small incision and advanced this guide to the lateral femoral cortex. We then followed with the 3.2 mm threaded guidewire, which was inserted by power through our drill sleeve through the proximal femur, femoral neck and femoral head. Fluoroscopic views in AP and lateral projection showed good placement of our guide pin to within 3 mm of the subchondral bone of the femoral head. Our measuring guide determined that we would use an 11 mm x 105 mm subtrochanteric hip lag screw. We removed our drill guide out of our sleeve and then reamed the proximal femur with the cannulated reamer from our set. This was reamed down to near the tip of our inserted guide wire. After removing our cannulated reamer, we then inserted the selected subtrochanteric hip lag screw manually. We got a good purchase of the bone with the threaded portion of our hip lag screw. Fluoroscopic views in AP and lateral projection showed good placement of our hip lag screw and showed that it was within the proximal end of our nail. We then removed the hip lag screw insertion apparatus. We locked the proximal end of our nail with the set screw with our hinge screwdriver. This was tightened snugly and then backed off 90 degrees. We directed our attention for the distal interlocking screw. Through a small skin incision, the concentric silver and gold drill sleeves were inserted to the lateral femoral cortex at about the mid thigh. We then proceeded to use the long 4.0 mm ship's pilot drill placing it through the lateral and medial femoral cortex through the distal hole of our static hole of the distal end of our InterTan nail. Fluoroscopic view in the AP projection showed that we had a proper depth of our drill. Measurement off our drill showed that we would use a 30 mm x 5 mm distal locking screw. We removed the drill and the silver sleeve. We inserted the selected screw through the gold sleeve. Fluoroscopic views showed that we had bicortical screw through the distal end of our nail in both AP and lateral projections. Final views were taken at the distal end of our nail, as well as the proximal hip. We were satisfied with the hip reduction as well as the placement of our hardware. We then removed the insertion guide off the nail with the ball-tip screwdriver. All wounds were irrigated with saline. We then closed the wounds in layers using buried simple stitches of 0 Vicryl to approximate the fascia malcolm layer; buried simple stitched of 2-0 Vicryl used to approximate the subcutaneous tissues; skin kailyn used to approximate the skin edges of the wounds. We then injected a total of 25 mL of 0.25% Marcaine with epinephrine to provide incisional local anesthesia. The patient's wounds were then dressed. He was transferred off the fracture table onto his bed and taken to the recovery room in satisfactory condition. ESTIMATED BLOOD LOSS: 100 mL. REPLACEMENT: 800 mL crystalloid. INTRAOPERATIVE COMPLICATIONS: None. PLAN: The patient will be advanced to weightbearing as tolerated on the right lower extremity. Will be walker ambulating. When stable, we will plan then on his transfer to his home to [place] for his subsequent postoperative rehabilitation. TD: 02/13/2018 12:03
--- NOTE | 2018-02-13 13:06 | XRAY Report ---
EXAM: RIGHT HIP RADIOGRAPHY INTRAOPERATIVE EXAM DATE: 02/13/2018. HISTORY: Intertrochanteric fracture, postreduction and fixation. COMPARISONS: 02/12/2018. TECHNIQUE: 4 fluoroscopic spot radiographs of the right hip and proximal femur obtained intraoperativ chela. Fluoroscopy time was 18 seconds.. FINDINGS: The intertrochanteric fracture has been fixed with a Neo's nail. The major fracture com ponents are in near anatomic alignment. No complication of nail placement, the tip of the compression screw is well within the margins of the femoral head. The distal end of the femoral stem is fixed wi th a transverse screw. No other femoral fracture evident. Small amount of gas in the soft tissues fro m the surgery. IMPRESSION: Status post internal fixation of left intertrochanteric hip fracture, major fracture comp onents in near-anatomic alignment. [facility] Referring Provider Line: [phone] SITE ID: [id number]
--- NOTE | 2018-02-13 13:06 | XRAY Preliminary Report ---
Exam: XR HIP W/PELVIS 1V RT IMPRESSION: Status post internal fixation of left intertrochanteric hip fracture, major fracture comp onents in near-anatomic alignment. [facility] SITE ID: [id number]
[2018-02-13] MEDS: oxyCOD/ACETAMIN 5 MG/325 MG TABLET PO PRN (13:20)
--- NOTE | 2018-02-13 16:38 | PROVIDER PROGRESS NOTE ---
Assessment/Plan - Problem List (1) Fracture, intertrochanteric, right femur Qualifiers: Encounter type: initial encounter Fracture type: closed Fracture alignment: displaced Qualified Code(s): S72.141A - Displaced intertrochanteric fracture of right femur, initial encounter for closed fracture Assessment/Plan: Patient presented with a fall and right intertrochanteric femur fracture. There was concern on the x-ray for heterogeneous sclerosis in the right proximal femur likely indicating an underlying lesion. The presentation was concerning for possible pathological fracture. Findings of chest x-ray and chest CT are suggestive of metastatic lung cancer which could explain the possible pathological fracture. POD#0 s/p Closed reduction and short interTan nailing of right IT hip fracture; Bone reaming biopsy Patients pain is controlled Will start PT today Will need to decided if he wants to go back to [place] for recovery or if he will stay in here and if he will need rehab it will all depend on how he does over the next few days Qualifiers: Encounter type: initial encounter Fracture type: closed Fracture alignment: displaced Qualified Code(s): S72.141A - Displaced intertrochanteric fracture of right femur, initial encounter for closed fracture (2) Lesion of right lung Conclusion/Plan: Patient was found to have a right lung lesion on chest x-ray and CT chest was performed given his risk factors of long-term smoking, weight loss, increasing shortness of breath and possible pathological fracture. The CT showed extensive confluent, soft tissue, masslike and multifocal densities within the posterior right upper lung and also within the right lower lobe with areas of central cavitation. There was also numerous bilateral pulmonary nodules. This was all highly suspicious for malignancy and metastatic disease. Patient and his were told of these findings and counseled. The patient understands that diagnosis needs to be confirmed with a biopsy but at this point it looks very much like he has metastatic cancer. Patient will need further outpatient workup and will need to be referred to oncology. Patient will need to decide whether he wants to do this here [place] he [place] or back in [place] at his home. Bone reaming sent for biopsy (3) COPD (chronic obstructive pulmonary disease) Conclusion/Plan: Patient appears to have emphysema with COPD from long-term tobacco use. The patient had no previous diagnosis of COPD. Patient does not appear to be in a COPD exacerbation although he does have some diffuse wheezing. on duonebs Stable Qualifiers: COPD type: emphysema (4) Tobacco abuse Conclusion/Plan: Patient has history of tobacco abuse up to 1 pack a day for greater than 50 years. The patient was counseled on need to quit smoking. Patient will be offered a nicotine patch if he needs it - Current Meds Current Meds: Current Medications Generic Name Dose Route Start Last Admin Trade Name Freq PRN Reason Stop Dose Admin Acetaminophen 650 mg 02/12/18 14:07 02/12/18 15:26 Tylenol PO 650 mg Q4HR PRN Administration Pain 1 to 4 Famotidine 20 mg 02/13/18 09:00 02/13/18 10:15 Pepcid PO Not Given DAILY DAYAN Sodium Chloride 1,000 mls @ 100 mls/hr 02/12/18 15:00 02/13/18 11:15 Normal Saline 0.9% IV 100 mls/hr .Q10H DAYAN Administration Acetaminophen 100 mls @ 400 mls/hr 02/13/18 01:06 02/13/18 05:27 Ofirmev IV Infused Q6HR PRN Infusion PAIN Oxycodone HCl 5 mg 02/12/18 14:07 02/12/18 21:59 Roxicodone PO 5 mg Q4HR PRN Administration Pain 5 to 7 Oxycodone/Acetaminophen 1 tab 02/13/18 09:40 02/13/18 13:20 Percocet 5 Mg/325 Mg PO 1 tab Q4HR PRN Administration PAIN Polyethylene Glycol 17 gm 02/13/18 09:00 02/13/18 10:15 Miralax PO Not Given DAILY DAAYN Sodium Chloride 10 ml 02/12/18 17:00 02/13/18 10:16 Normal Saline Flush 0.9% IVP Not Given 0100,0900,1700 DAYAN - Lab Result Lab results reviewed: Yes Fish Bone Diagrams: 02/13/18 05:45 02/13/18 05:45 - Additional Planning Condition/Complexity: Stable My Orders: My Active Orders 02/12/18 16:22 Nutrition Consult [CONS] Routine 02/12/18 18:24 Niño Insertion [RC] QSHIFT Consult/Specialty: PT, Other (Ortho) Plan Discussed with:: Patient, Family, Spouse Time Spent: 31-60 minutes Subjective - Subjective Patient Reports: Feeling Better, Resting Comfortably, Pain (When he moves the right leg but no pain when he is lying in bed), Other (No shortness of breath, cough, wheezing or chest pain) Nursing Reports: No Complaints Objective Vital Signs: Vital Signs - 24 hr 02/12/18 02/12/18 02/13/18 20:25 23:51 04:26 Temperature 36.3 C L 36.4 C L 36.6 C Heart Rate [ 86 82 81 Brachial] Heart Rate [ Sitting] Heart Rate [ Supine] Respiratory 22 16 16 Rate Blood Pressure 127/65 110/50 L 111/56 L [Right Brachial artery] Blood Pressure [Sitting] Blood Pressure [Supine] O2 Saturation 99 94 95 O2 Saturation [ With Activity] 02/13/18 02/13/18 02/13/18 09:40 09:45 09:50 Temperature Heart Rate [ Brachial] Heart Rate [ Sitting] Heart Rate [ Supine] Respiratory Rate Blood Pressure [Right Brachial artery] Blood Pressure [Sitting] Blood Pressure [Supine] O2 Saturation 98 99 98 O2 Saturation [ With Activity] 02/13/18 02/13/18 02/13/18 09:56 10:00 10:06 Temperature Heart Rate [ Brachial] Heart Rate [ Sitting] Heart Rate [ Supine] Respiratory Rate Blood Pressure [Right Brachial artery] Blood Pressure [Sitting] Blood Pressure [Supine] O2 Saturation 97 98 97 O2 Saturation [ With Activity] 02/13/18 02/13/18 02/13/18 10:11 10:15 10:21 Temperature Heart Rate [ Brachial] Heart Rate [ Sitting] Heart Rate [ Supine] Respiratory Rate Blood Pressure [Right Brachial artery] Blood Pressure [Sitting] Blood Pressure [Supine] O2 Saturation 96 98 96 O2 Saturation [ With Activity] 02/13/18 02/13/18 02/13/18 10:35 11:10 12:10 Temperature 36.6 C 36.2 C L 36.8 C Heart Rate [ 67 76 88 Brachial] Heart Rate [ Sitting] Heart Rate [ Supine] Respiratory 24 20 20 Rate Blood Pressure 127/70 123/78 120/70 [Right Brachial artery] Blood Pressure [Sitting] Blood Pressure [Supine] O2 Saturation 97 97 98 O2 Saturation [ With Activity] 02/13/18 02/13/18 13:15 15:50 Temperature 36.6 C Heart Rate [ 89 Brachial] Heart Rate [ 89 Sitting] Heart Rate [ 88 Supine] Respiratory 20 Rate Blood Pressure 128/71 [Right Brachial artery] Blood Pressure 139/75 H [Sitting] Blood Pressure 137/73 H [Supine] O2 Saturation 97 O2 Saturation [ 96 With Activity] Oxygen O2 Source [With Activity] Room air O2 Source Room air I&O (Last 24 Hrs): Intake and Output Totals x24h 02/11/18 02/12/18 02/13/18 23:59 23:59 23:59 Intake Total 200 2621.667 Output Total 650 700 Balance -450 1921.667 General: Alert, Oriented x3, Cooperative, No acute distress HEENT: Atraumatic, PERRLA, EOMI Neck: Supple, No JVD, No thyromegaly, +2 carotid pulse wo bruit, No LAD Lymphatic: no adenopathy Neuro: Alert, CN 2-12 Grossly Intact, Oriented Times 3 Cardiovascular: Regular rate, Normal S1, Normal S2, No murmurs Respiratory: Wheezes (Scattered esepecially in the right lung) Abdomen: Normal bowel sounds, Soft, No tenderness, No hepatospenomegaly, No masses Extremities: No clubbing, No cyanosis, Other (Right hip s/p surgery looks clean with some swelling, decrease ROM secondary to pain and swelling) Skin: No rashes, No breakdown - Results Results: Laboratory Results WBC 9.0 x10^3/uL (4.8-10.8) 02/13/18 05:45 RBC 3.81 10^6/uL (4.70-6.10) L 02/13/18 05:45 Hgb 10.2 g/dL (14.0-18.0) L 02/13/18 05:45 Hct 31.8 % (42.0-52.0) L 02/13/18 05:45 MCV 83.5 fL (80.0-94.0) 02/13/18 05:45 MCH 26.7 pg (27.0-31.0) L 02/13/18 05:45 MCHC 32.0 g/dL (32.0-36.0) 02/13/18 05:45 RDW 15.4 % (12.0-15.0) H 02/13/18 05:45 Plt Count 183 10^3/uL (130-450) 02/13/18 05:45 MPV 9.0 fL (7.4-11.4) 02/13/18 05:45 Neut # 7.2 10^3/uL (1.5-6.6) H 02/13/18 05:45 Lymph # 0.7 10^3/uL (1.5-3.5) L 02/13/18 05:45 Linn # 0.8 10^3/uL (0.0-1.0) 02/13/18 05:45 Eos # 0.1 10^3/uL (0.0-0.7) 02/13/18 05:45 Baso # 0.1 10^3/uL (0.0-0.1) 02/13/18 05:45 Absolute Nucleated RBC 0.00 x10^3/uL 02/13/18 05:45 Nucleated RBC % 0.0 /100WBC 02/13/18 05:45 Manual Slide Review Indicated 02/12/18 12:26 Platelet Morphology RARE GIANT PLATELETS (NORMAL) 02/12/18 12:26 PT 11.8 secs (9.9-12.6) 02/13/18 05:45 INR 1.0 (0.8-1.2) 02/13/18 05:45 Sodium 135 mmol/L (135-145) 02/13/18 05:45 Potassium 4.0 mmol/L (3.5-5.0) 02/13/18 05:45 Chloride 104 mmol/L (101-111) 02/13/18 05:45 Carbon Dioxide 25 mmol/L (21-32) 02/13/18 05:45 Anion Gap 6.0 (6-13) 02/13/18 05:45 BUN 10 mg/dL (6-20) 02/13/18 05:45 Creatinine 0.5 mg/dL (0.6-1.2) L 02/13/18 05:45 Estimated GFR (MDRD) 165 (>89) 02/13/18 05:45 Glucose 100 mg/dL (70-100) 02/13/18 05:45 Calcium 8.3 mg/dL (8.5-10.3) L 02/13/18 05:45 Phosphorus 3.1 mg/dL (2.5-4.6) 02/13/18 05:45 Magnesium 1.9 mg/dL (1.7-2.8) 02/13/18 05:45 Total Bilirubin 0.8 mg/dL (0.2-1.0) 02/13/18 05:45 AST 16 IU/L (10-42) 02/13/18 05:45 ALT 16 IU/L (10-60) 02/13/18 05:45 Alkaline Phosphatase 65 IU/L (42-121) 02/13/18 05:45 Troponin I < 0.04 ng/mL (<0.49) 02/12/18 12:26 Total Protein 5.9 g/dL (6.7-8.2) L 02/13/18 05:45 Albumin 3.0 g/dL (3.2-5.5) L 02/13/18 05:45 Globulin 2.9 g/dL (2.1-4.2) 02/13/18 05:45 Albumin/Globulin Ratio 1.0 (1.0-2.2) 02/13/18 05:45 Lipase 21 U/L (22-51) L 02/12/18 12:26 Blood Type O POSITIVE 02/12/18 13:08 Antibody Screen NEGATIVE 02/12/18 13:08 ABX Reporting Has patient been on IV antibiotics over the past 48 hours?: No
[2018-02-13] MEDS ORDERED: SODIUM CHLORIDE FLUSH 0.9% 10 ML SYRINGE IVP SCH (17:00)
[2018-02-13] MEDS: ASPIRIN 325 MG TABLET PO SCH (17:05)
[2018-02-13] MEDS: ceFAZolin 2 GM/50 ML 2 GM/50 ML BAG IV SCH (17:06)
[2018-02-13] MEDS: TAMSULOSIN 0.4 MG CAPSULE PO SCH (21:06)
[2018-02-13] MEDS: ACETAMINOPHEN 325 MG TABLET PO PRN (21:15)
[2018-02-14] MEDS: ceFAZolin 2 GM/50 ML 2 GM/50 ML BAG IV SCH (02:12)
[2018-02-14] MEDS: SODIUM CHLORIDE FLUSH 0.9% 10 ML SYRINGE IVP SCH ×3 (03:40→20:13)
[2018-02-14 05:20] LABS: BASOPHILS # (AUTO) 0.2 10^3/uL (0.0-0.1); EOSINOPHILS # (AUTO) 0.1 10^3/uL (0.0-0.7); HGB - HEMOGLOBIN 9.5 g/dL (14.0-18.0); LYMPHOCYTES # (AUTO) 0.7 10^3/uL (1.5-3.5); LYMPHOCYTES % (AUTO) 8.7 %; MEAN CORPUSCULAR HEMOGLOBIN 27.3 pg (27.0-31.0); MEAN CORPUSCULAR HGB CONC 32.9 g/dL (32.0-36.0); MEAN PLATELET VOLUME 9.1 fL (7.4-11.4); MONOCYTES # (AUTO) 0.6 10^3/uL (0.0-1.0); MONOCYTES % (AUTO) 7.9 %; NEUTROPHILS # (AUTO) 6.5 10^3/uL (1.5-6.6); NEUTROPHILS % (AUTO) 80.4 %; PLT - PLATELET COUNT 162 10^3/uL (130-450); RED BLOOD COUNT 3.49 10^6/uL (4.70-6.10); RED CELL DISTRIBUTION WIDTH 15.2 % (12.0-15.0)
[2018-02-14 05:31] LABS: ALBUMIN 2.8 g/dL (3.2-5.5); BILIRUBIN,TOTAL 0.8 mg/dL (0.2-1.0); CALCIUM 8.1 mg/dL (8.5-10.3); CREATININE 0.5 mg/dL (0.6-1.2); TOTAL PROTEIN 5.7 g/dL (6.7-8.2)
[2018-02-14] MEDS: oxyCOD/ACETAMIN 5 MG/325 MG TABLET PO PRN ×3 (06:03→13:57)
[2018-02-14] MEDS: SODIUM CHLORIDE 0.9% 1,000 ML IV SCH ×2 (08:10→20:13)
--- NOTE | 2018-02-14 10:00 | XRAY Report ---
FRONTAL CHEST: 02/14/2018 CLINICAL INDICATION: Cough, wheezing. FINDINGS: Frontal view of the chest is compared to previous film of 02/12/2018. Right upper lobe parenchymal disease appears unchanged, as does COPD and bibasilar nodularity. Left subclavian pacemaker/AICD is stable. The cardiac silhouette is not enlarged. Pleural calcifications are stable. No pneumothorax. IMPRESSION: STABLE RIGHT UPPER LOBE OPACITIES AND BIBASILAR NODULARITY, SUPERIMPOSED UPON COPD. TD: 02/14/2018 09:59
[2018-02-14] MEDS: POLYETHYLENE GLYCOL 3350 17 GM PACKET PO SCH (10:04)
[2018-02-14] MEDS: ASPIRIN 325 MG TABLET PO SCH ×2 (10:04→17:28)
[2018-02-14] MEDS: TAMSULOSIN 0.4 MG CAPSULE PO SCH (10:04)
[2018-02-14] MEDS: FAMOTIDINE 20 MG TABLET PO SCH (10:04)
--- NOTE | 2018-02-14 11:47 | PROVIDER PROGRESS NOTE ---
Subjective - General Admit Date: 02/12/18 Procedure Date: 02/13/18 Post Op Days: 1 - Review of Systems Wound/Incisions: positive: Healing well Musculoskeletal: positive: Joint pain Objective - Patient Data Reviewed Vital Signs: Yes Vital Signs: Vital Signs x48h Temp Pulse Pulse Resp BP Pulse Ox 02/14/18 08:41 101 H 24 02/14/18 07:54 36.4 C L 87 18 113/68 96 02/14/18 04:00 36.4 C L 85 16 125/70 95 Weight: Weight 02/12/18 02/13/18 02/14/18 23:59 23:59 23:59 Weight (kg) 53 kg Intake & Output: Intake and Output Totals x24h 02/12/18 02/13/18 02/14/18 23:59 23:59 23:59 Intake Total 200 4671.667 1396.667 Output Total 650 2550 1200 Balance -450 2121.667 196.667 - Lab Results Lab Results: 02/14/18 05:09 02/14/18 05:09 Other Lab Results: Lab Results x24hrs 02/14/18 02/14/18 Range/Units 05:09 05:09 WBC 8.0 (4.8-10.8) x10^3/uL RBC 3.49 L (4.70-6.10) 10^6/uL Hgb 9.5 L (14.0-18.0) g/dL Hct 29.0 L (42.0-52.0) % MCV 83.0 (80.0-94.0) fL MCH 27.3 (27.0-31.0) pg MCHC 32.9 (32.0-36.0) g/dL RDW 15.2 H (12.0-15.0) % Plt Count 162 (130-450) 10^3/uL MPV 9.1 (7.4-11.4) fL Neut # 6.5 (1.5-6.6) 10^3/uL Lymph # 0.7 L (1.5-3.5) 10^3/uL Tillman # 0.6 (0.0-1.0) 10^3/uL Eos # 0.1 (0.0-0.7) 10^3/uL Baso # 0.2 H (0.0-0.1) 10^3/uL Absolute Nucleated RBC 0.00 x10^3/uL Nucleated RBC % 0.0 /100WBC Sodium 137 (135-145) mmol/L Potassium 3.7 (3.5-5.0) mmol/L Chloride 106 (101-111) mmol/L Carbon Dioxide 26 (21-32) mmol/L Anion Gap 5.0 L (6-13) BUN 8 (6-20) mg/dL Creatinine 0.5 L (0.6-1.2) mg/dL Estimated GFR (MDRD) 165 (>89) Glucose 115 H (70-100) mg/dL Calcium 8.1 L (8.5-10.3) mg/dL Total Bilirubin 0.8 (0.2-1.0) mg/dL AST 18 (10-42) IU/L ALT 15 (10-60) IU/L Alkaline Phosphatase 61 (42-121) IU/L Total Protein 5.7 L (6.7-8.2) g/dL Albumin 2.8 L (3.2-5.5) g/dL Globulin 2.9 (2.1-4.2) g/dL Albumin/Globulin Ratio 1.0 (1.0-2.2) - Imaging Results Radiology Imaging: positive: EMP read indepedently - Current Medications Current Medications: Current Medications Generic Name Dose Route Start Last Admin Trade Name Freq PRN Reason Stop Dose Admin Acetaminophen 650 mg 02/12/18 14:07 02/13/18 21:15 Tylenol PO 650 mg Q4HR PRN Administration Pain 1 to 4 Albuterol/Ipratropium 3 ml 02/12/18 14:21 02/14/18 08:41 Duoneb INH 3 ml Q4HR PRN Administration Wheezing Aspirin 325 mg 02/13/18 17:00 02/14/18 10:04 Josh PO 325 mg BIDWM DAYAN Administration Famotidine 20 mg 02/13/18 09:00 02/14/18 10:04 Pepcid PO 20 mg DAILY DAYAN Administration Sodium Chloride 1,000 mls @ 100 mls/hr 02/12/18 15:00 02/14/18 08:10 Normal Saline 0.9% IV 100 mls/hr .Q10H DAYAN Administration Acetaminophen 100 mls @ 400 mls/hr 02/13/18 01:06 02/13/18 05:27 Ofirmev IV Infused Q6HR PRN Infusion PAIN Oxycodone HCl 5 mg 02/12/18 14:07 02/12/18 21:59 Roxicodone PO 5 mg Q4HR PRN Administration Pain 5 to 7 Oxycodone/Acetaminophen 1 tab 02/13/18 09:40 02/14/18 10:04 Percocet 5 Mg/325 Mg PO 1 tab Q4HR PRN Administration PAIN Polyethylene Glycol 17 gm 02/13/18 09:00 02/14/18 10:04 Miralax PO 17 gm DAILY DAYAN Administration Sodium Chloride 10 ml 02/12/18 17:00 02/14/18 03:40 Normal Saline Flush 0.9% IVP Not Given 0100,0900,1700 DAYAN Tamsulosin HCl 0.4 mg 02/13/18 21:00 02/14/18 10:04 Flomax PO Not Given DAILY DAYAN - Physical Exam Wound/Incisions: positive: Drainage (small amt. of serosang. fluid on dressing) General Appearance: positive: No acute distress Respiratory: negative: No respiratory distress Cardiovascular: positive: Regular rate & rhythm Abdomen: positive: Non-tender Extremities: positive: Joint swelling Neurologic/Psychiatric: positive: Motor nml, Sensation nml, Mood/affect nml Impression/Plan - Problem List Problem List: POD #1 Pt reports significant improvement in hip pain. Has been up with PT
--- NOTE | 2018-02-14 12:14 | PROVIDER PROGRESS NOTE ---
Assessment/Plan - Problem List (1) Fracture, intertrochanteric, right femur Qualifiers: Encounter type: initial encounter Fracture type: closed Fracture alignment: displaced Qualified Code(s): S72.141A - Displaced intertrochanteric fracture of right femur, initial encounter for closed fracture Assessment/Plan: Patient presented with a fall and right intertrochanteric femur fracture. There was concern on the x-ray for heterogeneous sclerosis in the right proximal femur likely indicating an underlying lesion. The presentation was concerning for possible pathological fracture. Findings of chest x-ray and chest CT are suggestive of metastatic lung cancer which could explain the possible pathological fracture. POD#1 s/p Closed reduction and short interTan nailing of right IT hip fracture; Bone reaming biopsy Patients pain is controlled but had increased pain after working with PT today Patient had more trouble and needed more assistance with PT today Patient would like to go back to [place] on Wednesday. He has a first class flight wednesday night. Talked with Dr De La Garza and PT both feel this is a realistic goal but will depend on how he progresses the next few days with PT. Qualifiers: Encounter type: initial encounter Fracture type: closed Fracture alignment: displaced Qualified Code(s): S72.141A - Displaced intertrochanteric fracture of right femur, initial encounter for closed fracture (2) Lesion of right lung Conclusion/Plan: Patient was found to have a right lung lesion on chest x-ray and CT chest was performed given his risk factors of long-term smoking, weight loss, increasing shortness of breath and possible pathological fracture. The CT showed extensive confluent, soft tissue, masslike and multifocal densities within the posterior right upper lung and also within the right lower lobe with areas of central cavitation. There was also numerous bilateral pulmonary nodules. This was all highly suspicious for malignancy and metastatic disease. Patient and his were told of these findings and counseled. The patient understands that diagnosis needs to be confirmed with a biopsy but at this point it looks very much like he has metastatic cancer. Patient will need further outpatient workup and will need to be referred to oncology. 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 The patient had no previous diagnosis of COPD. Patient does not appear to be in a COPD exacerbation although he does have some diffuse wheezing. on duonebs Patient had an episode of coughing this morning when he was eating breakfast but it has resolved. CXR was done and was stable. Stable Qualifiers: COPD type: emphysema (4) Tobacco abuse Conclusion/Plan: Patient has history of tobacco abuse up to 1 pack a day for greater than 50 years. The patient was counseled on need to quit smoking. Patient will be offered a nicotine patch if he needs it - Current Meds Current Meds: Current Medications Generic Name Dose Route Start Last Admin Trade Name Freq PRN Reason Stop Dose Admin Acetaminophen 650 mg 02/12/18 14:07 02/13/18 21:15 Tylenol PO 650 mg Q4HR PRN Administration Pain 1 to 4 Albuterol/Ipratropium 3 ml 02/12/18 14:21 02/14/18 08:41 Duoneb INH 3 ml Q4HR PRN Administration Wheezing Aspirin 325 mg 02/13/18 17:00 02/14/18 10:04 Josh PO 325 mg BIDWM DAYAN Administration Famotidine 20 mg 02/13/18 09:00 02/14/18 10:04 Pepcid PO 20 mg DAILY DAYAN Administration Sodium Chloride 1,000 mls @ 100 mls/hr 02/12/18 15:00 02/14/18 08:10 Normal Saline 0.9% IV 100 mls/hr .Q10H DAYAN Administration Acetaminophen 100 mls @ 400 mls/hr 02/13/18 01:06 02/13/18 05:27 Ofirmev IV Infused Q6HR PRN Infusion PAIN Oxycodone HCl 5 mg 02/12/18 14:07 02/12/18 21:59 Roxicodone PO 5 mg Q4HR PRN Administration Pain 5 to 7 Oxycodone/Acetaminophen 1 tab 02/13/18 09:40 02/14/18 10:04 Percocet 5 Mg/325 Mg PO 1 tab Q4HR PRN Administration PAIN Polyethylene Glycol 17 gm 02/13/18 09:00 02/14/18 10:04 Miralax PO 17 gm DAILY DAYAN Administration Sodium Chloride 10 ml 02/12/18 17:00 02/14/18 03:40 Normal Saline Flush 0.9% IVP Not Given 0100,0900,1700 DAYAN Tamsulosin HCl 0.4 mg 02/13/18 21:00 02/14/18 10:04 Flomax PO Not Given DAILY DAYAN - Lab Result Lab results reviewed: Yes Fish Bone Diagrams: 02/14/18 05:09 02/14/18 05:09 - Diagnostic Imaging Results Diagnostic Imaging Results: Final report reviewed - Additional Planning Condition/Complexity: Stable Consult/Specialty: PT, Other (Ortho) Plan Discussed with:: Patient, Spouse Time Spent: 31-60 minutes Subjective - Subjective Patient Reports: Feeling Better, Resting Comfortably, Pain (Right hip pain. Stable.), Other (Patient has pain when he does PT.) Nursing Reports: No Complaints Objective Vital Signs: Vital Signs - 24 hr 02/13/18 02/13/18 02/13/18 12:10 13:15 15:50 Temperature 36.8 C 36.6 C Heart Rate Heart Rate [ 88 89 Brachial] Heart Rate [ 89 Sitting] Heart Rate [ 88 Supine] Respiratory 20 20 Rate Blood Pressure 120/70 128/71 [Right Brachial artery] Blood Pressure 139/75 H [Sitting] Blood Pressure 137/73 H [Supine] O2 Saturation 98 97 O2 Saturation [ 96 With Activity] 02/13/18 02/13/18 02/14/18 20:00 23:55 04:00 Temperature 36.8 C 37.0 C 36.4 C L Heart Rate Heart Rate [ 73 84 85 Brachial] Heart Rate [ Sitting] Heart Rate [ Supine] Respiratory 20 16 16 Rate Blood Pressure 133/69 H 124/64 125/70 [Right Brachial artery] Blood Pressure [Sitting] Blood Pressure [Supine] O2 Saturation 97 94 95 O2 Saturation [ With Activity] 02/14/18 02/14/18 07:54 08:41 Temperature 36.4 C L Heart Rate 101 H Heart Rate [ 87 Brachial] Heart Rate [ Sitting] Heart Rate [ Supine] Respiratory 18 24 Rate Blood Pressure 113/68 [Right Brachial artery] Blood Pressure [Sitting] Blood Pressure [Supine] O2 Saturation 96 O2 Saturation [ With Activity] Oxygen O2 Source [With Activity] Room air O2 Source Room air I&O (Last 24 Hrs): Intake and Output Totals x24h 02/12/18 02/13/18 02/14/18 23:59 23:59 23:59 Intake Total 200 4671.667 1396.667 Output Total 650 2550 1200 Balance -450 2121.667 196.667 General: Alert, Oriented x3, Cooperative, No acute distress, Other (Cachectic appearing) HEENT: Atraumatic, PERRLA, EOMI, Mucous membr. moist/pink Neck: Supple, No JVD, No thyromegaly, +2 carotid pulse wo bruit, No LAD Lymphatic: no adenopathy Neuro: Alert, Non Focal, CN 2-12 Grossly Intact, Oriented Times 3 Cardiovascular: Regular rate, Normal S1, Normal S2, No murmurs Respiratory: Chest non-tender, No respiratory distress, Wheezes (Scattered, mild ) Abdomen: Normal bowel sounds, Soft, No tenderness, No hepatospenomegaly Extremities: No clubbing, No cyanosis, No edema, Normal pulses, Other ( Decreased ROM of right leg secondary to surgery and fracture of right hip) Skin: No rashes, No breakdown Comments/Notes: Right leg with dressing in place s/p hip surgery. SUrgical site looks clean. - Results Results: Laboratory Results WBC 8.0 x10^3/uL (4.8-10.8) 02/14/18 05:09 RBC 3.49 10^6/uL (4.70-6.10) L 02/14/18 05:09 Hgb 9.5 g/dL (14.0-18.0) L 02/14/18 05:09 Hct 29.0 % (42.0-52.0) L 02/14/18 05:09 MCV 83.0 fL (80.0-94.0) 02/14/18 05:09 MCH 27.3 pg (27.0-31.0) 02/14/18 05:09 MCHC 32.9 g/dL (32.0-36.0) 02/14/18 05:09 RDW 15.2 % (12.0-15.0) H 02/14/18 05:09 Plt Count 162 10^3/uL (130-450) 02/14/18 05:09 MPV 9.1 fL (7.4-11.4) 02/14/18 05:09 Neut # 6.5 10^3/uL (1.5-6.6) 02/14/18 05:09 Lymph # 0.7 10^3/uL (1.5-3.5) L 02/14/18 05:09 [place] # 0.6 10^3/uL (0.0-1.0) 02/14/18 05:09 Eos # 0.1 10^3/uL (0.0-0.7) 02/14/18 05:09 Baso # 0.2 10^3/uL (0.0-0.1) H 02/14/18 05:09 Absolute Nucleated RBC 0.00 x10^3/uL 02/14/18 05:09 Nucleated RBC % 0.0 /100WBC 02/14/18 05:09 Manual Slide Review Indicated 02/12/18 12:26 Platelet Morphology RARE GIANT PLATELETS (NORMAL) 02/12/18 12:26 PT 11.8 secs (9.9-12.6) 02/13/18 05:45 INR 1.0 (0.8-1.2) 02/13/18 05:45 Sodium 137 mmol/L (135-145) 02/14/18 05:09 Potassium 3.7 mmol/L (3.5-5.0) 02/14/18 05:09 Chloride 106 mmol/L (101-111) 02/14/18 05:09 Carbon Dioxide 26 mmol/L (21-32) 02/14/18 05:09 Anion Gap 5.0 (6-13) L 02/14/18 05:09 BUN 8 mg/dL (6-20) 02/14/18 05:09 Creatinine 0.5 mg/dL (0.6-1.2) L 02/14/18 05:09 Estimated GFR (MDRD) 165 (>89) 02/14/18 05:09 Glucose 115 mg/dL (70-100) H 02/14/18 05:09 Calcium 8.1 mg/dL (8.5-10.3) L 02/14/18 05:09 Phosphorus 3.1 mg/dL (2.5-4.6) 02/13/18 05:45 Magnesium 1.9 mg/dL (1.7-2.8) 02/13/18 05:45 Total Bilirubin 0.8 mg/dL (0.2-1.0) 02/14/18 05:09 AST 18 IU/L (10-42) 02/14/18 05:09 ALT 15 IU/L (10-60) 02/14/18 05:09 Alkaline Phosphatase 61 IU/L (42-121) 02/14/18 05:09 Troponin I < 0.04 ng/mL (<0.49) 02/12/18 12:26 Total Protein 5.7 g/dL (6.7-8.2) L 02/14/18 05:09 Albumin 2.8 g/dL (3.2-5.5) L 02/14/18 05:09 Globulin 2.9 g/dL (2.1-4.2) 02/14/18 05:09 Albumin/Globulin Ratio 1.0 (1.0-2.2) 02/14/18 05:09 Lipase 21 U/L (22-51) L 02/12/18 12:26 Blood Type O POSITIVE 02/12/18 13:08 Antibody Screen NEGATIVE 02/12/18 13:08 ABX Reporting Has patient been on IV antibiotics over the past 48 hours?: No
[2018-02-15] MEDS: SODIUM CHLORIDE FLUSH 0.9% 10 ML SYRINGE IVP SCH ×3 (00:57→16:20)
[2018-02-15] MEDS ORDERED: guaiFENesin/DEXTROMETHORPHAN 10 ML UDC PO PRN (04:57)
[2018-02-15] MEDS: SODIUM CHLORIDE 0.9% 1,000 ML IV SCH ×2 (05:37→16:19)
[2018-02-15 05:51] LABS: BASOPHILS # (AUTO) 0.1 10^3/uL (0.0-0.1); BASOPHILS % (AUTO) 0.9 %; EOSINOPHILS # (AUTO) 0.2 10^3/uL (0.0-0.7); EOSINOPHILS % (AUTO) 2.6 %; HGB - HEMOGLOBIN 8.7 g/dL (14.0-18.0); LYMPHOCYTES # (AUTO) 0.7 10^3/uL (1.5-3.5); LYMPHOCYTES % (AUTO) 9.2 %; MEAN CORPUSCULAR HEMOGLOBIN 27.1 pg (27.0-31.0); MEAN CORPUSCULAR HGB CONC 32.3 g/dL (32.0-36.0); MEAN CORPUSCULAR VOLUME 83.9 fL (80.0-94.0); MEAN PLATELET VOLUME 9.6 fL (7.4-11.4); MONOCYTES # (AUTO) 0.7 10^3/uL (0.0-1.0); MONOCYTES % (AUTO) 9.3 %; NEUTROPHILS # (AUTO) 6.2 10^3/uL (1.5-6.6); PLT - PLATELET COUNT 152 10^3/uL (130-450); RED BLOOD COUNT 3.21 10^6/uL (4.70-6.10); RED CELL DISTRIBUTION WIDTH 15.6 % (12.0-15.0)
[2018-02-15 06:09] LABS: ALBUMIN 2.6 g/dL (3.2-5.5); BILIRUBIN,TOTAL 0.5 mg/dL (0.2-1.0); CALCIUM 8.1 mg/dL (8.5-10.3); CREATININE 0.6 mg/dL (0.6-1.2); TOTAL PROTEIN 5.3 g/dL (6.7-8.2)
[2018-02-15] MEDS: oxyCOD/ACETAMIN 5 MG/325 MG TABLET PO PRN ×3 (08:17→21:06)
[2018-02-15] MEDS: ASPIRIN 325 MG TABLET PO SCH ×2 (08:17→16:19)
[2018-02-15] MEDS: FAMOTIDINE 20 MG TABLET PO SCH (08:17)
[2018-02-15] MEDS: TAMSULOSIN 0.4 MG CAPSULE PO SCH (08:17)
[2018-02-15] MEDS: POLYETHYLENE GLYCOL 3350 17 GM PACKET PO SCH (08:18)
--- NOTE | 2018-02-15 08:30 | PROVIDER PROGRESS NOTE ---
Subjective - General Admit Date: 02/12/18 Procedure Date: 02/13/18 Post Op Days: 2 - Review of Systems Wound/Incisions: positive: Drainage (small amt. of serosang. fluid on dressing) Gastrointestinal: positive: No symptoms Musculoskeletal: positive: Joint pain Skin: positive: No symptoms Psychiatric: positive: No symptoms Objective - Patient Data Reviewed Vital Signs: Yes Vital Signs: Vital Signs x48h Temp Pulse Resp BP Pulse Ox 02/15/18 07:54 36.5 C 85 16 124/66 94 02/15/18 04:45 36.6 C 88 16 117/60 97 Intake & Output: Intake and Output Totals x24h 02/13/18 02/14/18 02/15/18 23:59 23:59 23:59 Intake Total 4671.667 3734.667 1140 Output Total 2550 1775 675 Balance 2121.667 1959.667 465 - Lab Results Lab Results: 02/15/18 05:14 02/15/18 05:14 Other Lab Results: Lab Results x24hrs 02/15/18 02/15/18 Range/Units 05:14 05:14 WBC 8.0 (4.8-10.8) x10^3/uL RBC 3.21 L (4.70-6.10) 10^6/uL Hgb 8.7 L (14.0-18.0) g/dL Hct 27.0 L (42.0-52.0) % MCV 83.9 (80.0-94.0) fL MCH 27.1 (27.0-31.0) pg MCHC 32.3 (32.0-36.0) g/dL RDW 15.6 H (12.0-15.0) % Plt Count 152 (130-450) 10^3/uL MPV 9.6 (7.4-11.4) fL Neut # 6.2 (1.5-6.6) 10^3/uL Lymph # 0.7 L (1.5-3.5) 10^3/uL [place] # 0.7 (0.0-1.0) 10^3/uL Eos # 0.2 (0.0-0.7) 10^3/uL Baso # 0.1 (0.0-0.1) 10^3/uL Absolute Nucleated RBC 0.00 x10^3/uL Nucleated RBC % 0.0 /100WBC Sodium 138 (135-145) mmol/L Potassium 4.1 (3.5-5.0) mmol/L Chloride 105 (101-111) mmol/L Carbon Dioxide 26 (21-32) mmol/L Anion Gap 7.0 (6-13) BUN 12 (6-20) mg/dL Creatinine 0.6 (0.6-1.2) mg/dL Estimated GFR (MDRD) 134 (>89) Glucose 102 H (70-100) mg/dL Calcium 8.1 L (8.5-10.3) mg/dL Total Bilirubin 0.5 (0.2-1.0) mg/dL AST 17 (10-42) IU/L ALT 12 (10-60) IU/L Alkaline Phosphatase 53 (42-121) IU/L Total Protein 5.3 L (6.7-8.2) g/dL Albumin 2.6 L (3.2-5.5) g/dL Globulin 2.7 (2.1-4.2) g/dL Albumin/Globulin Ratio 1.0 (1.0-2.2) - Current Medications Current Medications: Current Medications Generic Name Dose Route Start Last Admin Trade Name Freq PRN Reason Stop Dose Admin Acetaminophen 650 mg 02/12/18 14:07 02/13/18 21:15 Tylenol PO 650 mg Q4HR PRN Administration Pain 1 to 4 Albuterol/Ipratropium 3 ml 02/12/18 14:21 02/14/18 08:41 Duoneb INH 3 ml Q4HR PRN Administration Wheezing Aspirin 325 mg 02/13/18 17:00 02/15/18 08:17 Josh PO 325 mg BIDWM DAYAN Administration Famotidine 20 mg 02/13/18 09:00 02/15/18 08:17 Pepcid PO 20 mg DAILY DAYAN Administration Guaifenesin 10 ml 02/15/18 04:57 02/15/18 05:37 Robitussin Dm PO 10 ml Q6HR PRN Administration Cough Sodium Chloride 1,000 mls @ 100 mls/hr 02/12/18 15:00 02/15/18 05:37 Normal Saline 0.9% IV 100 mls/hr .Q10H DAYAN Administration Acetaminophen 100 mls @ 400 mls/hr 02/13/18 01:06 02/13/18 05:27 Ofirmev IV Infused Q6HR PRN Infusion PAIN Oxycodone HCl 5 mg 02/12/18 14:07 02/12/18 21:59 Roxicodone PO 5 mg Q4HR PRN Administration Pain 5 to 7 Oxycodone/Acetaminophen 1 tab 02/13/18 09:40 02/15/18 08:17 Percocet 5 Mg/325 Mg PO 1 tab Q4HR PRN Administration PAIN Polyethylene Glycol 17 gm 02/13/18 09:00 02/15/18 08:18 Miralax PO 17 gm DAILY DAYAN Administration Sodium Chloride 10 ml 02/12/18 17:00 02/15/18 08:18 Normal Saline Flush 0.9% IVP Not Given 0100,0900,1700 DAYAN Tamsulosin HCl 0.4 mg 02/13/18 21:00 02/15/18 08:17 Flomax PO 0.4 mg DAILY DAYAN Administration - Physical Exam Wound/Incisions: positive: Healing well General Appearance: positive: No acute distress Extremities: positive: Joint swelling Neurologic/Psychiatric: positive: Motor nml, Sensation nml, Mood/affect nml Impression/Plan - Problem List Problem List: POD #2 Pt is sitting up and doing well with less pain. dressings to be changed now. Pt plans to return home on the weekend.
--- NOTE | 2018-02-15 14:01 | PROVIDER PROGRESS NOTE ---
Assessment/Plan - Problem List (1) Fracture, intertrochanteric, right femur Qualifiers: Encounter type: subsequent encounter Fracture type: closed Fracture alignment: displaced Assessment/Plan: POD #2, followed by Ortho. PT increasing and Pt has good pain control on meds. Will consider DCh on Wed or Thurs so Pt able to get to his Fri flight to [place]. (2) COPD (chronic obstructive pulmonary disease) Qualifiers: COPD type: emphysema Assessment/Plan: No active exacerbation, although Pt has a wet non-productive cough which he says is chronic. Pt has decided to now stop smoking; he was decreasing already. (3) Lesion of right lung Assessment/Plan: This is likely a new lung cancer diagnosis. Pt will need W/U and Oncology F/U, which he will have upon return to [place], [place]. This was discussed and confirmed as Pt's choice. - Current Meds Current Meds: Current Medications Generic Name Dose Route Start Last Admin Trade Name Freq PRN Reason Stop Dose Admin Acetaminophen 650 mg 02/12/18 14:07 02/13/18 21:15 Tylenol PO 650 mg Q4HR PRN Administration Pain 1 to 4 Albuterol/Ipratropium 3 ml 02/12/18 14:21 02/14/18 08:41 Duoneb INH 3 ml Q4HR PRN Administration Wheezing Aspirin 325 mg 02/13/18 17:00 02/15/18 08:17 Josh PO 325 mg BIDWM DAYAN Administration Famotidine 20 mg 02/13/18 09:00 02/15/18 08:17 Pepcid PO 20 mg DAILY DAYAN Administration Guaifenesin 10 ml 02/15/18 04:57 02/15/18 05:37 Robitussin Dm PO 10 ml Q6HR PRN Administration Cough Sodium Chloride 1,000 mls @ 100 mls/hr 02/12/18 15:00 02/15/18 05:37 Normal Saline 0.9% IV 100 mls/hr .Q10H DAYAN Administration Acetaminophen 100 mls @ 400 mls/hr 02/13/18 01:06 02/13/18 05:27 Ofirmev IV Infused Q6HR PRN Infusion PAIN Oxycodone HCl 5 mg 02/12/18 14:07 02/12/18 21:59 Roxicodone PO 5 mg Q4HR PRN Administration Pain 5 to 7 Oxycodone/Acetaminophen 1 tab 02/13/18 09:40 02/15/18 08:17 Percocet 5 Mg/325 Mg PO 1 tab Q4HR PRN Administration PAIN Polyethylene Glycol 17 gm 02/13/18 09:00 02/15/18 08:18 Miralax PO 17 gm DAILY DAYAN Administration Sodium Chloride 10 ml 02/12/18 17:00 02/15/18 08:18 Normal Saline Flush 0.9% IVP Not Given 0100,0900,1700 DAYAN Tamsulosin HCl 0.4 mg 02/13/18 21:00 02/15/18 08:17 Flomax PO 0.4 mg DAILY DAYAN Administration - Lab Result Fish Bone Diagrams: 02/15/18 05:14 02/15/18 05:14 Subjective - Subjective Patient Reports: Feeling Better Nursing Reports: No Complaints, Other (Walked to doorway with PT today, using walker.) Objective Vital Signs: Vital Signs - 24 hr 02/14/18 02/14/18 02/14/18 14:11 15:55 20:06 Temperature 36.6 C 36.8 C Heart Rate Heart Rate [ 85 85 92 Brachial] Respiratory 18 24 20 Rate Blood Pressure 114/68 106/63 127/55 L [Right Brachial artery] O2 Saturation 99 98 97 02/14/18 02/15/18 02/15/18 23:45 04:45 07:54 Temperature 36.3 C L 36.6 C 36.5 C Heart Rate Heart Rate [ 84 88 85 Brachial] Respiratory 16 16 16 Rate Blood Pressure 111/66 117/60 124/66 [Right Brachial artery] O2 Saturation 96 97 94 02/15/18 02/15/18 11:30 13:29 Temperature 36.2 C L Heart Rate 85 Heart Rate [ 90 Brachial] Respiratory 16 16 Rate Blood Pressure 100/52 L [Right Brachial artery] O2 Saturation 98 Oxygen O2 Source [With Activity] Room air O2 Source Room air I&O (Last 24 Hrs): Intake and Output Totals x24h 02/13/18 02/14/18 02/15/18 23:59 23:59 23:59 Intake Total 4671.667 3734.667 1516 Output Total 2550 1775 1425 Balance 2121.667 1959.667 91 General: Alert, Oriented x3 HEENT: Mucous membr. moist/pink, Other (Cachectic with temporal wasting.) Neck: Supple, Other ((+) JVD) Neuro: Non Focal, Other (Bilat Dupytren contractures of pinky fingers.) Cardiovascular: Regular rate, No murmurs Respiratory: Other (Diminished but no wheezing, rales or rhonchi.) Abdomen: Soft Extremities: No edema, Other (Bilat Dupytren contractures of pinky fingers.) - Results Results: Laboratory Results WBC 8.0 x10^3/uL (4.8-10.8) 02/15/18 05:14 RBC 3.21 10^6/uL (4.70-6.10) L 02/15/18 05:14 Hgb 8.7 g/dL (14.0-18.0) L 02/15/18 05:14 Hct 27.0 % (42.0-52.0) L 02/15/18 05:14 MCV 83.9 fL (80.0-94.0) 02/15/18 05:14 MCH 27.1 pg (27.0-31.0) 02/15/18 05:14 MCHC 32.3 g/dL (32.0-36.0) 02/15/18 05:14 RDW 15.6 % (12.0-15.0) H 02/15/18 05:14 Plt Count 152 10^3/uL (130-450) 02/15/18 05:14 MPV 9.6 fL (7.4-11.4) 02/15/18 05:14 Neut # 6.2 10^3/uL (1.5-6.6) 02/15/18 05:14 Lymph # 0.7 10^3/uL (1.5-3.5) L 02/15/18 05:14 [place] # 0.7 10^3/uL (0.0-1.0) 02/15/18 05:14 Eos # 0.2 10^3/uL (0.0-0.7) 02/15/18 05:14 Baso # 0.1 10^3/uL (0.0-0.1) 02/15/18 05:14 Absolute Nucleated RBC 0.00 x10^3/uL 02/15/18 05:14 Nucleated RBC % 0.0 /100WBC 02/15/18 05:14 Manual Slide Review Indicated 02/12/18 12:26 Platelet Morphology RARE GIANT PLATELETS (NORMAL) 02/12/18 12:26 PT 11.8 secs (9.9-12.6) 02/13/18 05:45 INR 1.0 (0.8-1.2) 02/13/18 05:45 Sodium 138 mmol/L (135-145) 02/15/18 05:14 Potassium 4.1 mmol/L (3.5-5.0) 02/15/18 05:14 Chloride 105 mmol/L (101-111) 02/15/18 05:14 Carbon Dioxide 26 mmol/L (21-32) 02/15/18 05:14 Anion Gap 7.0 (6-13) 02/15/18 05:14 BUN 12 mg/dL (6-20) 02/15/18 05:14 Creatinine 0.6 mg/dL (0.6-1.2) 02/15/18 05:14 Estimated GFR (MDRD) 134 (>89) 02/15/18 05:14 Glucose 102 mg/dL (70-100) H 02/15/18 05:14 Calcium 8.1 mg/dL (8.5-10.3) L 02/15/18 05:14 Phosphorus 3.1 mg/dL (2.5-4.6) 02/13/18 05:45 Magnesium 1.9 mg/dL (1.7-2.8) 02/13/18 05:45 Total Bilirubin 0.5 mg/dL (0.2-1.0) 02/15/18 05:14 AST 17 IU/L (10-42) 02/15/18 05:14 ALT 12 IU/L (10-60) 02/15/18 05:14 Alkaline Phosphatase 53 IU/L (42-121) 02/15/18 05:14 Troponin I < 0.04 ng/mL (<0.49) 02/12/18 12:26 Total Protein 5.3 g/dL (6.7-8.2) L 02/15/18 05:14 Albumin 2.6 g/dL (3.2-5.5) L 02/15/18 05:14 Globulin 2.7 g/dL (2.1-4.2) 02/15/18 05:14 Albumin/Globulin Ratio 1.0 (1.0-2.2) 02/15/18 05:14 Lipase 21 U/L (22-51) L 02/12/18 12:26 Blood Type O POSITIVE 02/12/18 13:08 Antibody Screen NEGATIVE 02/12/18 13:08 ABX Reporting Has patient been on IV antibiotics over the past 48 hours?: No
[2018-02-16] MEDS: SODIUM CHLORIDE FLUSH 0.9% 10 ML SYRINGE IVP SCH ×3 (00:27→15:46)
[2018-02-16] MEDS: SODIUM CHLORIDE 0.9% 1,000 ML IV SCH (02:42)
[2018-02-16] MEDS: ACETAMINOPHEN 325 MG TABLET PO PRN (08:04)
[2018-02-16] MEDS: TAMSULOSIN 0.4 MG CAPSULE PO SCH (08:04)
[2018-02-16] MEDS: POLYETHYLENE GLYCOL 3350 17 GM PACKET PO SCH (08:05)
[2018-02-16] MEDS: ASPIRIN 325 MG TABLET PO SCH (08:05)
[2018-02-16] MEDS: FAMOTIDINE 20 MG TABLET PO SCH (08:05)
[2018-02-16] MEDS: oxyCOD/ACETAMIN 5 MG/325 MG TABLET PO PRN ×3 (08:06→21:21)
[2018-02-16] MEDS: DABIGATRAN 75 MG CAPSULE PO SCH (15:25)
--- NOTE | 2018-02-16 17:54 | PROVIDER PROGRESS NOTE ---
Assessment/Plan - Problem List (1) Fracture, intertrochanteric, right femur Qualifiers: Encounter type: subsequent encounter Fracture type: closed Fracture alignment: displaced Assessment/Plan: Pt is a High Risk post-op hip, due to inactivity and Cancer. Will change ASA to Pradaxa for DVT prophylaxis, for a 1 mo course (per UpToDate). Plan is for DCh tomorrow fr flight to [place] on Wed. I will order several days of meds locally tomorrow. (2) COPD (chronic obstructive pulmonary disease) Qualifiers: COPD type: emphysema Assessment/Plan: No symptomatic need for meds currently. (3) Lesion of right lung Assessment/Plan: Cancer W/U pending in [place]. (4) Anemia Assessment/Plan: Hgb has dropped from 12.6 at admission to 8.7 yesterday. Pt had minimal EBL but was also getting iv hydration daily until today. Will DC iv fluids, check Iron and B12, Folate and watch CBC before DCh tomorrow. - Current Meds Current Meds: Current Medications Generic Name Dose Route Start Last Admin Trade Name Freq PRN Reason Stop Dose Admin Acetaminophen 650 mg 02/12/18 14:07 02/16/18 08:04 Tylenol PO 650 mg Q4HR PRN Administration Pain 1 to 4 Albuterol/Ipratropium 3 ml 02/12/18 14:21 02/14/18 08:41 Duoneb INH 3 ml Q4HR PRN Administration Wheezing Dabigatran 150 mg 02/16/18 09:06 02/16/18 15:25 Pradaxa PO 150 mg DAILY DAYAN Administration Famotidine 20 mg 02/13/18 09:00 02/16/18 08:05 Pepcid PO 20 mg DAILY DAYAN Administration Guaifenesin 10 ml 02/15/18 04:57 02/15/18 05:37 Robitussin Dm PO 10 ml Q6HR PRN Administration Cough Acetaminophen 100 mls @ 400 mls/hr 02/13/18 01:06 02/13/18 05:27 Ofirmev IV Infused Q6HR PRN Infusion PAIN Oxycodone HCl 5 mg 02/12/18 14:07 02/12/18 21:59 Roxicodone PO 5 mg Q4HR PRN Administration Pain 5 to 7 Oxycodone/Acetaminophen 1 tab 02/13/18 09:40 02/16/18 11:54 Percocet 5 Mg/325 Mg PO 1 tab Q4HR PRN Administration PAIN Polyethylene Glycol 17 gm 02/13/18 09:00 02/16/18 08:05 Miralax PO 17 gm DAILY DAY[facility] Administration Sodium Chloride 10 ml 02/12/18 17:00 02/16/18 15:46 Normal Saline Flush 0.9% IVP 10 ml 0100,0900,1700 DAYAN Administration Tamsulosin HCl 0.4 mg 02/13/18 21:00 02/16/18 08:04 Flomax PO 0.4 mg DAILY DAY[facility] Administration - Lab Result Fish Bone Diagrams: 02/15/18 05:14 02/15/18 05:14 - Additional Planning My Orders: My Active Orders 02/16/18 09:06 Dabigatran [Pradaxa] 150 mg PO DAILY Subjective - Subjective Patient Reports: Feeling Better Nursing Reports: Other (Was able to walk within hallway, using a walker.) Objective Vital Signs: Vital Signs - 24 hr 02/15/18 02/15/18 02/16/18 20:25 23:30 08:00 Temperature 36.6 C 36.4 C L 36.6 C Heart Rate Heart Rate [ 86 84 88 Brachial] Respiratory 16 16 18 Rate Blood Pressure 122/62 123/61 144/78 H [Right Brachial artery] O2 Saturation 96 96 94 02/16/18 02/16/18 09:23 15:32 Temperature 36.6 C Heart Rate 92 Heart Rate [ 85 Brachial] Respiratory 16 20 Rate Blood Pressure 121/64 [Right Brachial artery] O2 Saturation 95 Oxygen O2 Source [With Activity] Room air O2 Source Room air I&O (Last 24 Hrs): Intake and Output Totals x24h 02/14/18 02/15/18 02/16/18 23:59 23:59 23:59 Intake Total 3734.667 3116 3020 Output Total 1775 2225 3430 Balance 1959.667 891 -410 General: Alert, Oriented x3, No acute distress HEENT: Atraumatic, Mucous membr. moist/pink Neck: Supple, No JVD Neuro: Non Focal Cardiovascular: Regular rate, No murmurs Respiratory: Other (Diminished but moving air and no wheezing) Abdomen: Soft Extremities: No edema - Results Results: Laboratory Results WBC 8.0 x10^3/uL (4.8-10.8) 02/15/18 05:14 RBC 3.21 10^6/uL (4.70-6.10) L 02/15/18 05:14 Hgb 8.7 g/dL (14.0-18.0) L 02/15/18 05:14 Hct 27.0 % (42.0-52.0) L 02/15/18 05:14 MCV 83.9 fL (80.0-94.0) 02/15/18 05:14 MCH 27.1 pg (27.0-31.0) 02/15/18 05:14 MCHC 32.3 g/dL (32.0-36.0) 02/15/18 05:14 RDW 15.6 % (12.0-15.0) H 02/15/18 05:14 Plt Count 152 10^3/uL (130-450) 02/15/18 05:14 MPV 9.6 fL (7.4-11.4) 02/15/18 05:14 Neut # 6.2 10^3/uL (1.5-6.6) 02/15/18 05:14 Lymph # 0.7 10^3/uL (1.5-3.5) L 02/15/18 05:14 [place] # 0.7 10^3/uL (0.0-1.0) 02/15/18 05:14 Eos # 0.2 10^3/uL (0.0-0.7) 02/15/18 05:14 Baso # 0.1 10^3/uL (0.0-0.1) 02/15/18 05:14 Absolute Nucleated RBC 0.00 x10^3/uL 02/15/18 05:14 Nucleated RBC % 0.0 /100WBC 02/15/18 05:14 Manual Slide Review Indicated 02/12/18 12:26 Platelet Morphology RARE GIANT PLATELETS (NORMAL) 02/12/18 12:26 PT 11.8 secs (9.9-12.6) 02/13/18 05:45 INR 1.0 (0.8-1.2) 02/13/18 05:45 Sodium 138 mmol/L (135-145) 02/15/18 05:14 Potassium 4.1 mmol/L (3.5-5.0) 02/15/18 05:14 Chloride 105 mmol/L (101-111) 02/15/18 05:14 Carbon Dioxide 26 mmol/L (21-32) 02/15/18 05:14 Anion Gap 7.0 (6-13) 02/15/18 05:14 BUN 12 mg/dL (6-20) 02/15/18 05:14 Creatinine 0.6 mg/dL (0.6-1.2) 02/15/18 05:14 Estimated GFR (MDRD) 134 (>89) 02/15/18 05:14 Glucose 102 mg/dL (70-100) H 02/15/18 05:14 Calcium 8.1 mg/dL (8.5-10.3) L 02/15/18 05:14 Phosphorus 3.1 mg/dL (2.5-4.6) 02/13/18 05:45 Magnesium 1.9 mg/dL (1.7-2.8) 02/13/18 05:45 Total Bilirubin 0.5 mg/dL (0.2-1.0) 02/15/18 05:14 AST 17 IU/L (10-42) 02/15/18 05:14 ALT 12 IU/L (10-60) 02/15/18 05:14 Alkaline Phosphatase 53 IU/L (42-121) 02/15/18 05:14 Troponin I < 0.04 ng/mL (<0.49) 02/12/18 12:26 Total Protein 5.3 g/dL (6.7-8.2) L 02/15/18 05:14 Albumin 2.6 g/dL (3.2-5.5) L 02/15/18 05:14 Globulin 2.7 g/dL (2.1-4.2) 02/15/18 05:14 Albumin/Globulin Ratio 1.0 (1.0-2.2) 02/15/18 05:14 Lipase 21 U/L (22-51) L 02/12/18 12:26 Blood Type O POSITIVE 02/12/18 13:08 Antibody Screen NEGATIVE 02/12/18 13:08 ABX Reporting Has patient been on IV antibiotics over the past 48 hours?: No
[2018-02-17 06:00] LABS: BASOPHILS # (AUTO) 0.1 10^3/uL (0.0-0.1); EOSINOPHILS # (AUTO) 0.2 10^3/uL (0.0-0.7); EOSINOPHILS % (AUTO) 3.1 %; HGB - HEMOGLOBIN 9.3 g/dL (14.0-18.0); LYMPHOCYTES # (AUTO) 0.9 10^3/uL (1.5-3.5); LYMPHOCYTES % (AUTO) 12.8 %; MEAN CORPUSCULAR HEMOGLOBIN 26.9 pg (27.0-31.0); MEAN CORPUSCULAR VOLUME 84.3 fL (80.0-94.0); MEAN PLATELET VOLUME 9.4 fL (7.4-11.4); MONOCYTES # (AUTO) 0.6 10^3/uL (0.0-1.0); MONOCYTES % (AUTO) 8.3 %; NEUTROPHILS # (AUTO) 5.4 10^3/uL (1.5-6.6); NEUTROPHILS % (AUTO) 74.8 %; PLT - PLATELET COUNT 214 10^3/uL (130-450); RED BLOOD COUNT 3.45 10^6/uL (4.70-6.10); RED CELL DISTRIBUTION WIDTH 15.6 % (12.0-15.0); WHITE BLOOD COUNT 7.2 x10^3/uL (4.8-10.8)
[2018-02-17] MEDS: SODIUM CHLORIDE FLUSH 0.9% 10 ML SYRINGE IVP SCH ×2 (06:16→09:14)
[2018-02-17 06:39] LABS: FOLATE 14.05 ng/mL (5.90 - >24.8)
[2018-02-17] MEDS: oxyCOD/ACETAMIN 5 MG/325 MG TABLET PO PRN ×2 (06:58→13:37)
[2018-02-17 07:12] LABS: % IRON SATURATION 12 % (20-50); IRON 28 ug/dL (45-182); TOTAL IRON BINDING CAPACITY 242 ug/dL (250-450); TRANSFERRIN 173 mg/dL (180-329)
[2018-02-17] MEDS ORDERED: SENNA 8.6 MG TABLET PO SCH (09:00)
[2018-02-17] MEDS ORDERED: FERROUS SULFATE 325 MG TABLET PO SCH (09:00)
[2018-02-17] MEDS ORDERED: DOCUSATE SODIUM 100 MG CAPSULE PO SCH (09:00)
[2018-02-17] MEDS: TAMSULOSIN 0.4 MG CAPSULE PO SCH (09:12)
[2018-02-17] MEDS: DABIGATRAN 75 MG CAPSULE PO SCH (09:12)
[2018-02-17] MEDS: FAMOTIDINE 20 MG TABLET PO SCH (09:13)
[2018-02-17] MEDS: POLYETHYLENE GLYCOL 3350 17 GM PACKET PO SCH (09:13)
--- NOTE | 2018-02-17 11:55 | Discharge Plan ---
Discharge Plan Disposition: Home, Self Care Condition: Stable Prescriptions: Ipratropium/Albuterol [Duoneb] 3 ml INH Q4HR PRN #1 neb PRN Reason: Wheezing oxyCODONE/ACET 5/325 [Percocet 5 mg/325 mg] 1 tab PO Q4HR PRN #10 tablet PRN Reason: Pain Dabigatran [Pradaxa] 150 mg PO DAILY #60 capsule Ferrous Sulfate 325 mg PO DAILY #30 tablet Diet: Regular Activity Restrictions: Activity as Tolerated Shower Restrictions: No Driving Restrictions: Yes (No driving til cleared by PCP or Orthopedist) Assistance Devices: Walker Instruction Topics: Surgery Prevent DVT After, Hip Safety Sit, DVT Prevent, Fx Hip Common Questions Additional Instructions or Follow Up instructions: See your doctor in 1-2 weeks for: 1) refill of medications and decision on duration of blood thinner use 2) management of your emphysema and quitting cigarette smoking 3) evaluation of possible lung cancer with metastasis 4) referral to an Orthopedic doctor for follow-up of the hip surgery 5) referral for Physical Therapy No Smoking: If you smoke, Please STOP! Call for help.
--- NOTE | 2018-02-17 12:03 | PROVIDER PROGRESS NOTE ---
Subjective - General Admit Date: 02/12/18 Procedure Date: 02/13/18 Post Op Days: 4 - Review of Systems Wound/Incisions: positive: Dressing dry and intact Gastrointestinal: positive: No symptoms Musculoskeletal: positive: Joint pain Skin: positive: No symptoms Psychiatric: positive: No symptoms Objective - Patient Data Vital Signs: Vital Signs x48h Temp Pulse Resp BP Pulse Ox 02/17/18 08:26 36.2 C L 87 18 121/68 94 02/17/18 05:45 36.5 C 90 16 118/71 94 Intake & Output: Intake and Output Totals x24h 02/15/18 02/16/18 02/17/18 23:59 23:59 23:59 Intake Total 3116 3678 600 Output Total 2225 3780 1100 Balance 891 -102 -500 - Lab Results Lab Results: 02/17/18 05:10 02/15/18 05:14 Other Lab Results: Lab Results x24hrs 02/17/18 02/17/18 02/17/18 Range/Units 05:10 05:10 05:10 WBC 7.2 (4.8-10.8) x10^3/uL RBC 3.45 L (4.70-6.10) 10^6/uL Hgb 9.3 L (14.0-18.0) g/dL Hct 29.1 L (42.0-52.0) % MCV 84.3 (80.0-94.0) fL MCH 26.9 L (27.0-31.0) pg MCHC 32.0 (32.0-36.0) g/dL RDW 15.6 H (12.0-15.0) % Plt Count 214 (130-450) 10^3/uL MPV 9.4 (7.4-11.4) fL Neut # 5.4 (1.5-6.6) 10^3/uL Lymph # 0.9 L (1.5-3.5) 10^3/uL [place] # 0.6 (0.0-1.0) 10^3/uL Eos # 0.2 (0.0-0.7) 10^3/uL Baso # 0.1 (0.0-0.1) 10^3/uL Absolute Nucleated RBC 0.00 x10^3/uL Nucleated RBC % 0.0 /100WBC Iron 28 L (45-182) ug/dL TIBC 242 L (250-450) ug/dL % Saturation 12 L (20-50) % Transferrin 173 L (180-329) mg/dL Vitamin B12 229 (180-914) pg/mL Folate 14.05 (5.90 - >24.8) ng/mL - Current Medications Current Medications: Current Medications Generic Name Dose Route Start Last Admin Trade Name Freq PRN Reason Stop Dose Admin Acetaminophen 650 mg 02/12/18 14:07 02/16/18 08:04 Tylenol PO 650 mg Q4HR PRN Administration Pain 1 to 4 Albuterol/Ipratropium 3 ml 02/12/18 14:21 02/14/18 08:41 Duoneb INH 3 ml Q4HR PRN Administration Wheezing Dabigatran 150 mg 02/16/18 09:06 02/17/18 09:12 Pradaxa PO 150 mg DAILY [facility] Administration Docusate Sodium 100 mg 02/17/18 09:00 02/17/18 09:13 Colace 100mg Capsule PO Not Given BID DAYAN Famotidine 20 mg 02/13/18 09:00 02/17/18 09:13 Pepcid PO 20 mg DAILY DAYAN Administration Guaifenesin 10 ml 02/15/18 04:57 02/15/18 05:37 Robitussin Dm PO 10 ml Q6HR PRN Administration Cough Acetaminophen 100 mls @ 400 mls/hr 02/13/18 01:06 02/13/18 05:27 Ofirmev IV Infused Q6HR PRN Infusion PAIN Oxycodone HCl 5 mg 02/12/18 14:07 02/12/18 21:59 Roxicodone PO 5 mg Q4HR PRN Administration Pain 5 to 7 Oxycodone/Acetaminophen 1 tab 02/13/18 09:40 02/17/18 06:58 Percocet 5 Mg/325 Mg PO 1 tab Q4HR PRN Administration PAIN Polyethylene Glycol 17 gm 02/13/18 09:00 02/17/18 09:13 Miralax PO Not Given DAILY [facility] Senna 17.2 mg 02/17/18 09:00 02/17/18 09:14 Senokot PO Not Given Q12H [facility] Sodium Chloride 10 ml 02/12/18 17:00 02/17/18 09:14 Normal Saline Flush 0.9% IVP 10 ml 0100,0900,1700 DAYAN Administration Tamsulosin HCl 0.4 mg 02/13/18 21:00 02/17/18 09:12 Flomax PO 0.4 mg DAILY DAYAN Administration ABX Reporting Has patient been on IV antibiotics over the past 48 hours?: No Impression/Plan - Problem List Problem List: Pt doing well and planning for Trip to home I have discussed aftercare plans with the patient: Vee out at 2 wks post op Big Bandaid dressing until then Weight bearing as tolerated with walker ROM of feet/ankles, and isometric exercises for DVT prophylaxis ASA for prophylaxis. f/u with Ortho in [place] at 2 wks. Home with xray disc and all records.
[2018-02-17 13:29] VITALS: BP 142/81
--- NOTE | 2018-02-17 13:46 | DISCHARGE SUMMARY ---
Physician: Maria Del Rosario Pearson MD DATE OF ADMISSION: 02/12/2018 DATE OF DISCHARGE: 02/17/2018 HISTORY OF PRESENT ILLNESS: This is a 67-year-old white male visiting here from [place], [place]. The patient is a heavy smoker, is on no prescription medications. 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 The patient has not seen a doctor for these complaints locally. On a trip here to visit his daughter and her family, he tripped and fell in the house , without any preceding symptoms such as dizziness and developed excruciating right hip pain. He was brought to the emergency room and found to have a right hip fracture. His admission chest x-ray showed evidence of COPD as well as a right lung mass. The patient was admitted for management of the hip fracture and abnormal CXR. HOSPITAL COURSE AND DISCHARGE DIAGNOSES 1. Fracture, intertrochanteric, right femur. The patient underwent surgery the day after admission for repair. The patient also had a biopsy of the bone. Postoperatively, the patient had pain control using Percocet and began physical therapy with a rolling walker. Initially, he was unsure if he would stay here locally for a period of time for further physical therapy or simply return back to [place] for rehabilitation there. He eventually decided that he would keep his originally scheduled flight and return to [place] for post-op management after right hip surgery. He was discharged with 10 tablets of Percocet p.r.n. pain. The patient was initially placed on aspirin for DVT prophylaxis, but because of his high risk status being inactive, and with possible malignancy suspected, his DVT prophylaxis postoperatively was changed to Pradaxa 150 mg p.o. daily for a 30-day course. Followup with his primary care provider and/or Orthopedist locally is advised for determination of duration of treatment. Pathology report was available on the day of discharge and this showed trabecular bone with fibrotic medullary cavity, but no malignant cells were identified histologically and immunohistochemical evaluation was negative for cancer markers. 2. Chronic obstructive pulmonary disease. The patient had a wet cough, intermittent wheezing, but was not short of breath. He required nebulizers p.r.n. There were no signs of bronchitis or pneumonia clinically. The patient was discharged with an inhaler to use p.r.n. 3. Right lung mass. The patient's chest x-ray showed chronic obstructive pulmonary disease, right suprahilar and upper lung opacities. He, therefore, underwent a chest CT which was interpreted as having extensive confluent, soft tissue, mass-like and multifocal densities within the posterior right upper lung and also within the right lower lobe with areas of central cavitation. There are also numerous bilateral pulmonary nodes. These are suspicious for malignancy and metastatic disease. There is also possible borderline enlarged mediastinal lymph nodes and possible right hilar lymphadenopathy. He also has multiple thoracic vertebral body compression deformities. The patient was counseled regarding the possible diagnosis of lung cancer with metastasis. The patient again decided that biopsy and further workup for this would be done in [place]. 4. Anemia. The patient's admission hemoglobin was 12.6, this dropped to 8.7 the day before discharge. There was minimal estimated blood loss in the OR, but he did receive IV hydration for 4 days of his stay, creating hemodilution. He underwent iron and B12 and folate studies. B12 and folate were normal. Iron was low at 28, TIBC 242, low percent saturation 12% and transferrin 173. Iron sulfate was planned to be prescribed for replacement; however, the patient remembered being told by his mother when he was young that he had an iron allergy, therefore, this was not prescribed. Followup of his anemia is advised with his primary care provider. LABORATORY AND IMAGING: Reviewed and summarized above. 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 The Echo showed normal LV size and EF of 60-65%, normal RV size and function and normal PA pressure of 33 mmHg ALLERGIES: IRON. MEDICATIONS AT THE TIME OF DISCHARGE 1. Percocet 5/325, 10 tablets, 1 p.o. q. 4 hours p.r.n. pain. 2. Pradaxa 150 mg p.o. daily. 3. DuoNeb inhaler q. 4 hours p.r.n. shortness of breath and wheezing. PHYSICAL EXAMINATION AT DISCHARGE VITAL SIGNS: Blood pressure 121/68, pulse of 87 in sinus rhythm, afebrile. Room air saturation 94%. HEENT: Showed poor oral dentition, moist oral mucosa. NECK: Without JVD or carotid bruits. CHEST: Scattered wheezes. Good air movement. No rales. Increased AP diameter. HEART: Sounds normal. No murmur. ABDOMEN: Soft, normal bowel sounds. EXTREMITIES: No clubbing, cyanosis, edema. The right hip had dressings. NEUROLOGIC: Intact. CODE STATUS: FULL CODE. FOLLOWUP: Followup in [place], [place] with his PCP for medication refills, determination of anticoagulant duration of use, referral to an Orthopedist, referral for physical therapy, evaluation of the lung mass for possible cancer and management of COPD and smoking cessation. Time required to complete this entire discharge, dictation, review of records, medication management: 60 minutes. TD: 02/17/2018 13:45 DAFNE
--- NOTE | 2018-02-17 22:05 | DISCHARGE SUMMARY ---
Physician: Maria Del Rosario Pearson MD DATE OF ADMISSION: 02/12/2018 DATE OF DISCHARGE: 02/17/2018 ADDENDUM: After discharge, the patient's pharmacy called me stating that his Pradaxa copay was excessive (greater than $500) therefore, I ordered Xarelto 10 mg p.o. daily for a 1 month course. The pharmacist also indicated that his DuoNeb did not come in an inhalation form, only a nebulizer therefore, this was changed to Advair Diskus inhalation pocket inhaler p.r.n. TD: 02/17/2018 22:04
== END 2018-02-17 14:38 | disposition home or self-care (01) | DRG 481 ==
LOC: ED 12:14 → MS2 14:08
PROVIDERS: ADMIT Internal Medicine; ATTEND Internal Medicine
PROC: 0QS636Z Reposition Right Upper Femur with Intramedullary Internal Fixation Device, Percutaneous Approach (ICD-10-PCS; principal; 2018-02-13 08:00)
DX: S72.141A Displaced intertrochanteric fracture of right femur, initial encounter for closed fracture (principal); R64 Cachexia; Z68.1 Body mass index [BMI] 19.9 or less, adult; C34.91 Malignant neoplasm of unspecified part of right bronchus or lung; C78.00 Secondary malignant neoplasm of unspecified lung; W01.0XXA Fall on same level from slipping, tripping and stumbling without subsequent striking against object, initial encounter; Y92.22 Religious institution as the place of occurrence of the external cause; J43.9 Emphysema, unspecified; F17.210 Nicotine dependence, cigarettes, uncomplicated; Z88.8 Allergy status to other drugs, medicaments and biological substances; Z95.810 Presence of automatic (implantable) cardiac defibrillator; Z91.038 Other insect allergy status; Z80.0 Family history of malignant neoplasm of digestive organs; Z80.8 Family history of malignant neoplasm of other organs or systems
CPT/HCPCS: 36415; 71045; 71260; 80053; 82607; 82746; 83540; 83690; 83735; 84100; 84466; 84484; 85025; 85610; 86850; 86900; 86901; 88307; 88342; 88344; 93005; 93306; 94640; 99284